=== PATIENT | male | born 1955 | race Caucasian/White ===

== ENCOUNTER 2020-04-29 06:28 | Day surgery (SDC) | payer BC, SELFPAY ==
[2020-04-22 20:03] VITALS: BMI 25.8
--- NOTE | 2020-04-28 08:57 | HO.ANESPROP2 ---
Documented by User: Ayala Abbott 04/28/20 11:50 HPI - Anesthesia Eval Consult details Narrative: 65yo M for Colonoscopy [facility] Past Medical History Medical History Ulcerative colitis Surgical History Surgical History History of colonoscopy Social History Social History Smoking Status: Never smoker Use of substances other than those prescribed or required for medical reasons: No Advance Directives: No Advance Directives Information Provided: No Advance Directives on File: No Meds Allergies Allergy/AdvReac Type Severity Reaction Status Date / Time aspirin Allergy Mild Rash Verified 04/22/20 20:01 Home Medications Medication Instructions Recorded Confirmed Last Taken Type No Known Home Meds 04/22/20 04/22/20 Unknown History Exam Exam Date and Time: April 28, 2020 0857 Height,Weight and Vital Signs: Height 5 ft 7 in Weight 74.843 kg Assessment and Plan Assessment Anesthesia Assessment: Chart Reviewed Documented by User: Adri Atkins 04/29/20 07:17 [facility] Past Medical History Medical History Ulcerative colitis Surgical History Surgical History History of colonoscopy Social History Social History Smoking Status: Never smoker Use of substances other than those prescribed or required for medical reasons: No Advance Directives: No Advance Directives Information Provided: No Advance Directives on File: No Meds Allergies Allergy/AdvReac Type Severity Reaction Status Date / Time aspirin Allergy Mild Rash Verified 04/22/20 20:01 Home Medications Medication Instructions Recorded Confirmed Last Taken Type No Known Home Meds 04/22/20 04/22/20 Unknown History Exam Airway Mallampati Class: II TM Dist: >3cm Neck ROM: Full
[2020-04-29 06:54] VITALS: BP 152/96; PULSE 86; RESP 16; TEMP 36.9; O2SAT 97
[2020-04-29] MEDS: Lactated Ringers 1,000 ML 100 ML IVCONT (06:58)
[2020-04-29 08:26] VITALS: BP 105/70; PULSE 73; RESP 12; TEMP 36.3; O2SAT 96
--- NOTE | 2020-04-29 08:27 | PM.OP ---
Brief Operative Note Date of Service: 04/29/20 Pre-op diagnosis: Ulcerative colitis Post-op diagnosis: other (Same, R/O dysplasia, diverticulosis) Procedure: Colonoscopy to cecum and TI with biopsies Surgeon: Dennis Blunt Anesthesia: MAC Estimated blood loss (mL): 5.0 Pathology: other (A. Ascending colon B. Transverse colon C. Descending colon D. Sigmoid colon E. rectum) Condition: stable Disposition: PACU
[2020-04-29 08:40] VITALS: BP 141/82; PULSE 66; RESP 16; TEMP 36.3; O2SAT 97
--- NOTE | 2020-04-29 08:41 | OP_ITS ---
SURGEON: Dennis Blunt MD INDICATIONS: The patient presents for evaluation of long-standing ulcerative colitis and colorectal cancer screening. PREOPERATIVE DIAGNOSIS: POSTOPERATIVE DIAGNOSIS: PROCEDURE PERFORMED: Colonoscopy to cecum and terminal ileum with multiple biopsies. Full consent has been obtained from him for this, including risks of bleeding and perforation. ESTIMATED BLOOD LOSS: COMPLICATIONS: ANESTHESIA: Monitored anesthesia care. ASSISTANTS: SPECIMENS: PREOPERATIVE DIAGNOSES: Colorectal cancer screening and ulcerative colitis. POSTOPERATIVE DIAGNOSES: Colorectal cancer screening and ulcerative colitis, diverticulosis, rule out dysplasia. DESCRIPTION OF PROCEDURE: The patient was placed in the left lateral decubitus position. The digital rectal exam revealed no abnormalities. There was no perianal disease. The Olympus video pediatric colonoscope was entered into the rectum and advanced easily to the cecum. Once in the cecum, I did identify normal-appearing cecal pouch with appendiceal orifice and a normal-appearing ileocecal valve. The terminal ileum was cannulated and appeared normal. The scope was withdrawn back in the colon. The entire cecum and ileocecal valve appeared normal. The scope was slowly withdrawn assessing all mucosal surfaces carefully. Preparation was excellent. The only area of some mild colitis was between 40 and 50 cm. I did not visualize any sign of polyps, other areas of colitis, nor angiodysplasia. There was a mild amount of sigmoid diverticulosis. Random biopsies were obtained in the ascending colon, transverse colon, descending colon, sigmoid colon, and rectum. In the rectum, the scope was retroflexed visualizing normal rectal mucosa and no pathology. The scope was straightened out and withdrawn from the patient. He tolerated procedure well and was returned to the recovery area in stable condition. IMPRESSION: 1. History of ulcerative colitis, rule out dysplasia. 2. Diverticulosis. PLAN: The results of the biopsy will be checked. Assuming there is no dysplasia, I would recommend a repeat colonoscopy in 5 years for further screening. He is currently doing well from a symptomatic standpoint on no particular medication for the ulcerative colitis and we will continue to observe this for the time being. He was advised to see me in 1 year for a followup visit. He was advised not to use any aspirin and NSAIDs for at least a week. This has been discussed with his . MD JERE Barkley/RAFAELA / [id number]
== END 2020-04-29 09:43 | disposition home or self-care (01) ==
PROVIDERS: PCP Internal Medicine; Visit Provider Internal Medicine
PROC: 0DJD8ZZ Inspection of Lower Intestinal Tract, Via Natural or Artificial Opening Endoscopic (ICD-10-PCS; CPT 45378; principal; 2020-04-29 07:30)
DX: Z12.11 Encounter for screening for malignant neoplasm of colon (principal); K52.9 Noninfective gastroenteritis and colitis, unspecified; K62.89 Other specified diseases of anus and rectum; K57.30 Diverticulosis of large intestine without perforation or abscess without bleeding; Z87.19 Personal history of other diseases of the digestive system; Z88.6 Allergy status to analgesic agent
CPT/HCPCS: 45380; 88305

== ENCOUNTER 2021-02-27 10:06 | Outpatient (REF) | payer BC, SELFPAY ==
[2021-02-27 10:10] LABS: MANUAL DIFF FLAG NO
[2021-02-27 10:53] LABS: Basophils Absolute Auto 0.1 X10*3/uL (0.0-0.2); Basophils Percent Auto 0.9 % (0-2); Eosinophils Absolute Auto 0.2 X10*3/uL (0.0-0.4); Eosinophils Percent Auto 3.3 % (0-4); Hemoglobin 14.6 g/dl (14.0-18.0); Imm Gran Abs Auto 0.02 X10*3/uL (0.00-0.03); Imm Gran Pct Auto 0.4 % (0.0-0.4); Lymphocytes Absolute Auto 1.8 X10*3/uL (1.2-4.9); Lymphocytes Percent Auto 33.8 % (20-40); Mean Corpuscular HGB Conc 32.4 g/dl (31.0-36.0); Mean Corpuscular Hemoglobin 29.7 pg (27.0-33.0); Mean Corpuscular Volume 91.6 fL (80.0-98.0); Mean Platelet Volume 12.6 fL (9.4-12.4); Monocytes Absolute Auto 0.5 X10*3/uL (0.1-1.2); Monocytes Percent Auto 9.4 % (2-11); Neutrophils Absolute Auto 2.9 x10*3/uL (2.0-8.3); Neutrophils Percent Auto 52.2 % (45-73); Platelet Count 138 X10*3/uL (160-400); Red Blood Count 4.91 X10*6/uL (4.60-5.80); Red Cell Distribution Width 11.9 % (11.0-16.0); White Blood Count 5.5 X10*3/uL (4.8-10.8)
[2021-02-27 11:04] LABS: Estimated Average Glucose 120 mg/dL; Hemoglobin A1c % 5.8 %
[2021-02-27 11:19] LABS: Alanine Aminotransferase 15 U/L (0-40); Alkaline Phosphatase 68 U/L (39-117); Anion Gap 11 (12-20); Aspartate Amino Transferase 18 U/L (5-37); Bilirubin Total 0.5 mg/dL (0.0-1.0); Blood Urea Nitrogen 14 mg/dL (9-16); Calcium 9.3 mg/dL (8.4-10.2); Carbon Dioxide 23 mmol/L (22-29); Chloride 111 mmol/L (96-108); Cholesterol 162 mg/dL; Estimated Glomerular Filt Rate > 60; Glucose Fasting 111 mg/dL (60-99); HDL Cholesterol 64 mg/dL; LDL Cholesterol Calculated 90 mg/dl; Potassium 4.4 mmol/L (3.3-5.1); Sodium 141 mmol/L (135-145); Total Protein 6.9 g/dL (6.5-8.0); Triglycerides 42 mg/dL
[2021-02-27 11:26] LABS: Creatinine Urine 177.73 mg/dL; Microalbum/Creatinine Ratio Ur 2.8 ug/mg cr
[2021-02-27 11:42] LABS: PSA,Total (Free>4and<10) 0.75 ng/mL (0.00-4.00)
== END 2021-02-27 10:07 | disposition home or self-care (01) ==
LOC: HO.LNP 10:06
PROVIDERS: Visit Provider Internal Medicine
DX: Z00.00 Encounter for general adult medical examination without abnormal findings (principal); Z12.5 Encounter for screening for malignant neoplasm of prostate; R73.03 Prediabetes; I10 Essential (primary) hypertension
CPT/HCPCS: 80053; 80061; 82043; 83036; 84153; 85025

== ENCOUNTER 2021-03-02 15:48 | Outpatient (REF) | payer BC, SELFPAY ==
[2021-03-02 15:52] LABS: MANUAL DIFF FLAG NO
[2021-03-02 15:54] LABS: Basophils Absolute Auto 0.1 X10*3/uL (0.0-0.2); Basophils Percent Auto 0.9 % (0-2); Eosinophils Absolute Auto 0.3 X10*3/uL (0.0-0.4); Eosinophils Percent Auto 3.6 % (0-4); Hematocrit 45.9 % (42.0-52.0); Hemoglobin 15.1 g/dl (14.0-18.0); Imm Gran Abs Auto 0.03 X10*3/uL (0.00-0.03); Imm Gran Pct Auto 0.4 % (0.0-0.4); Lymphocytes Absolute Auto 2.7 X10*3/uL (1.2-4.9); Lymphocytes Percent Auto 36.7 % (20-40); Mean Corpuscular HGB Conc 32.9 g/dl (31.0-36.0); Mean Corpuscular Hemoglobin 29.7 pg (27.0-33.0); Mean Corpuscular Volume 90.2 fL (80.0-98.0); Mean Platelet Volume 12.3 fL (9.4-12.4); Monocytes Absolute Auto 0.9 X10*3/uL (0.1-1.2); Neutrophils Absolute Auto 3.5 x10*3/uL (2.0-8.3); Neutrophils Percent Auto 46.4 % (45-73); Platelet Count 167 X10*3/uL (160-400); Red Blood Count 5.09 X10*6/uL (4.60-5.80); Red Cell Distribution Width 11.9 % (11.0-16.0); White Blood Count 7.5 X10*3/uL (4.8-10.8)
== END 2021-03-02 15:49 | disposition home or self-care (01) ==
LOC: HO.LNP 15:48
PROVIDERS: Visit Provider Internal Medicine
DX: D69.6 Thrombocytopenia, unspecified (principal)
CPT/HCPCS: 85025

== ENCOUNTER 2022-03-30 10:28 | Outpatient (REF) | payer BC, SELFPAY ==
[2022-03-30 10:31] LABS: MANUAL DIFF FLAG NO
[2022-03-30 10:48] LABS: Appearance Urine Clear; Basophils Absolute Auto 0.1 X10*3/uL (0.0-0.2); Basophils Percent Auto 0.9 % (0-2); Color Urine Yellow; Eosinophils Absolute Auto 0.2 X10*3/uL (0.0-0.4); Eosinophils Percent Auto 4.3 % (0-4); Glucose Urine UA Negative (Negative); Hematocrit 46.1 % (42.0-52.0); Hemoglobin 15.3 g/dl (14.0-18.0); Imm Gran Abs Auto 0.03 X10*3/uL (0.00-0.03); Imm Gran Pct Auto 0.6 % (0.0-0.4); Leukocyte Esterase Urine Negative (Negative); Lymphocytes Absolute Auto 1.7 X10*3/uL (1.2-4.9); Lymphocytes Percent Auto 32.3 % (20-40); Mean Corpuscular HGB Conc 33.2 g/dl (31.0-36.0); Mean Corpuscular Hemoglobin 30.2 pg (27.0-33.0); Mean Corpuscular Volume 91.1 fL (80.0-98.0); Mean Platelet Volume 11.5 fL (9.4-12.4); Monocytes Absolute Auto 0.6 X10*3/uL (0.1-1.2); Monocytes Percent Auto 10.7 % (2-11); Neutrophils Absolute Auto 2.7 x10*3/uL (2.0-8.3); Neutrophils Percent Auto 51.2 % (45-73); Nitrite Urine Negative (Negative); Platelet Count 229 X10*3/uL (160-400); Red Blood Count 5.06 X10*6/uL (4.60-5.80); Red Cell Distribution Width 12.1 % (11.0-16.0); Urine Blood Negative (Negative); Urine Ketones Negative (Negative); Urine Protein Negative (Neg-Trace); White Blood Count 5.3 X10*3/uL (4.8-10.8)
[2022-03-30 10:53] LABS: Bacteria Urine None Seen (None Seen); Hyaline Casts Urine 0-2 /LPF (0-2); RBC Urine 0-2 /HPF (0-2); Squamous Epithelial Cell Urine 0-2 /HPF (0-2); WBC Urine 0-5 /HPF (0-5)
[2022-03-30 11:12] LABS: Estimated Average Glucose 117 mg/dL; Hemoglobin A1C 150.5242 umol/L; Hemoglobin A1c % 5.7 %
[2022-03-30 11:30] LABS: Microalbumin Urine < 5.0 mg/L
[2022-03-30 11:49] LABS: Alanine Aminotransferase 14 U/L (0-40); Alkaline Phosphatase 85 U/L (39-117); Anion Gap 13 (12-20); Aspartate Amino Transferase 18 U/L (5-37); Bilirubin Total 0.7 mg/dL (0.0-1.0); Blood Urea Nitrogen 16 mg/dL (9-16); Calcium 9.5 mg/dL (8.4-10.2); Carbon Dioxide 26 mmol/L (22-29); Chloride 108 mmol/L (96-108); Cholesterol 173 mg/dL; Estimated Glomerular Filt Rate > 60; Glucose Fasting 106 mg/dL (60-99); HDL Cholesterol 69 mg/dL; LDL Cholesterol Calculated 95 mg/dl; Potassium 4.6 mmol/L (3.3-5.1); Sodium 142 mmol/L (135-145); Total Protein 6.9 g/dL (6.5-8.0); Triglycerides 45 mg/dL
[2022-03-30 12:06] LABS: PSA,Total (Free>4and<10) 0.74 ng/mL (0.00-4.00)
== END 2022-03-30 10:29 | disposition home or self-care (01) ==
LOC: HO.LNP 10:28
PROVIDERS: PCP Internal Medicine; Visit Provider Internal Medicine
DX: Z12.5 Encounter for screening for malignant neoplasm of prostate (principal); I10 Essential (primary) hypertension; R73.03 Prediabetes; D69.6 Thrombocytopenia, unspecified
CPT/HCPCS: 80053; 80061; 81001; 82043; 83036; 84153; 85025

== ENCOUNTER 2023-03-29 10:54 | Outpatient (REF) | payer BC, SELFPAY ==
[2023-03-29 10:57] LABS: MANUAL DIFF FLAG NO
[2023-03-29 11:04] LABS: Basophils Absolute Auto 0.1 X10*3/uL (0.0-0.2); Basophils Percent Auto 0.9 % (0-2); Eosinophils Absolute Auto 0.3 X10*3/uL (0.0-0.4); Eosinophils Percent Auto 4.1 % (0-4); Hematocrit 47.9 % (42.0-52.0); Hemoglobin 15.8 g/dl (14.0-18.0); Imm Gran Abs Auto 0.04 X10*3/uL (0.00-0.03); Imm Gran Pct Auto 0.6 % (0.0-0.4); Lymphocytes Absolute Auto 1.8 X10*3/uL (1.2-4.9); Lymphocytes Percent Auto 26.4 % (20-40); Mean Corpuscular Hemoglobin 30.1 pg (27.0-33.0); Mean Corpuscular Volume 91.2 fL (80.0-98.0); Mean Platelet Volume 11.8 fL (9.4-12.4); Monocytes Absolute Auto 0.7 X10*3/uL (0.1-1.2); Neutrophils Absolute Auto 3.8 x10*3/uL (2.0-8.3); Platelet Count 218 X10*3/uL (160-400); Red Blood Count 5.25 X10*6/uL (4.60-5.80); Red Cell Distribution Width 11.9 % (11.0-16.0); White Blood Count 6.6 X10*3/uL (4.8-10.8)
[2023-03-29 11:05] LABS: Appearance Urine Clear; Color Urine Yellow; Glucose Urine UA Negative (Negative); Leukocyte Esterase Urine Negative (Negative); Nitrite Urine Negative (Negative); Urine Blood Negative (Negative); Urine Ketones Negative (Negative); Urine Protein Negative (Neg-Trace)
[2023-03-29 11:07] LABS: Bacteria Urine None Seen (None Seen); Hyaline Casts Urine 0-2 /LPF (0-2); RBC Urine 0-2 /HPF (0-2); Squamous Epithelial Cell Urine 0-2 /HPF (0-2); WBC Urine 0-5 /HPF (0-5)
[2023-03-29 11:12] LABS: Alanine Aminotransferase 17 U/L (0-40); Albumin Level 4.3 g/dL (3.5-5.0); Alkaline Phosphatase 77 U/L (39-117); Anion Gap 11 (12-20); Aspartate Amino Transferase 21 U/L (5-37); Bilirubin Total 0.6 mg/dL (0.0-1.0); Blood Urea Nitrogen 16 mg/dL (9-16); Calcium 9.5 mg/dL (8.4-10.2); Carbon Dioxide 26 mmol/L (22-29); Chloride 108 mmol/L (96-108); Cholesterol 184 mg/dL (<200); Estimated Glomerular Filt Rate > 60; Glucose Random 108 mg/dL (60-115); HDL Cholesterol 72 mg/dL (>40); LDL Cholesterol Calculated 103 mg/dL (<100); Potassium 4.3 mmol/L (3.3-5.1); Sodium 141 mmol/L (135-145); Total Protein 7.7 g/dL (6.5-8.0); Triglycerides 45 mg/dL (<150)
== END 2023-03-29 10:55 | disposition home or self-care (01) ==
LOC: HO.LNP 10:54
PROVIDERS: Visit Provider Internal Medicine
DX: Z00.00 Encounter for general adult medical examination without abnormal findings (principal); Z12.5 Encounter for screening for malignant neoplasm of prostate; I10 Essential (primary) hypertension; D69.6 Thrombocytopenia, unspecified
CPT/HCPCS: 80053; 80061; 81001; 84153; 85025

== ENCOUNTER 2024-05-15 11:21 | Outpatient (REF) | payer BC, SELFPAY ==
[2024-05-15 11:23] LABS: MANUAL DIFF FLAG NO
[2024-05-15 11:44] LABS: Basophils Absolute Auto 0.1 X10*3/uL (0.0-0.2); Basophils Percent Auto 1.3 % (0-2); Eosinophils Absolute Auto 0.5 X10*3/uL (0.0-0.4); Eosinophils Percent Auto 9.3 % (0-4); Hematocrit 46.2 % (42.0-52.0); Hemoglobin 15.1 g/dl (14.0-18.0); Imm Gran Abs Auto 0.03 X10*3/uL (0.00-0.03); Imm Gran Pct Auto 0.6 % (0.0-0.4); Lymphocytes Absolute Auto 1.6 X10*3/uL (1.2-4.9); Lymphocytes Percent Auto 29.4 % (20-40); Mean Corpuscular HGB Conc 32.7 g/dl (31.0-36.0); Mean Corpuscular Hemoglobin 29.6 pg (27.0-33.0); Mean Corpuscular Volume 90.6 fL (80.0-98.0); Monocytes Absolute Auto 0.7 X10*3/uL (0.1-1.2); Monocytes Percent Auto 12.8 % (2-11); Neutrophils Absolute Auto 2.5 x10*3/uL (2.0-8.3); Neutrophils Percent Auto 46.6 % (45-73); Red Cell Distribution Width 12.3 % (11.0-16.0); White Blood Count 5.4 X10*3/uL (4.8-10.8)
[2024-05-15 11:55] LABS: Estimated Average Glucose 126 mg/dL; Hemoglobin A1C 164.6537 umol/L; Total Hemoglobin (HGBA1C) 3938.8838 umol/L
[2024-05-15 12:02] LABS: Cholesterol 173 mg/dL (<200); HDL Cholesterol 72 mg/dL (>40); LDL Cholesterol Calculated 90 mg/dL (<100); Triglycerides 55 mg/dL (<150)
[2024-05-15 12:14] LABS: Appearance Urine Clear; Color Urine Yellow; Glucose Urine UA Negative (Negative); Leukocyte Esterase Urine Negative (Negative); Nitrite Urine Negative (Negative); PH 6.5 (5.0-9.0); Specific Gravity - Urine 1.015 (1.005-1.025); Urine Blood Negative (Negative); Urine Ketones Negative (Negative); Urine Protein Negative (Neg-Trace)
[2024-05-15 12:18] LABS: Bacteria Urine None Seen (None Seen); Hyaline Casts Urine 0-2 /LPF (0-2); RBC Urine 0-2 /HPF (0-2); Squamous Epithelial Cell Urine 0-2 /HPF (0-2); WBC Urine 0-5 /HPF (0-5)
[2024-05-15 12:19] LABS: PSA,Total (Free>4and<10) 0.74 ng/mL (0.00-4.00)
[2024-05-15 12:22] LABS: Mean Platelet Volume 11.9 fL (9.4-12.4); Platelet Count 114 X10*3/uL (160-400)
[2024-05-15 12:37] LABS: Creatinine Urine 104.85 mg/dL; Microalbumin Urine < 5.0 mg/L
--- OUTSIDE RECORDS SUMMARY | 2024-05-15 13:30 | XMS_ITS ---
Author Organization Geoffrey Murillo MD Address [address] [place], [place] [id number] Care Team Providers Care Gymnastics Instructor Name Role Phone Geoffrey Murillo Primary Care Provider Results Component Value Reference Range Notes Complete Blood Count Auto Di ff Reviewed date:03/29/2023 04:43:33 PM Interpretation: Performing Lab:[facility], [address] [place] [phone] Notes/Report: White Blood Count 6.6 4.8-10.8 X10*3/uL Red Blood Count 5.25 4.60-5.80 X10*6/uL Hemoglobin 15.8 14.0-18.0 g/dl Hematocrit 47.9 42.0-52.0 % Mean Corpuscular Volume 91.2 80.0-98.0 fL Mean Corpuscular Hemoglobin 30.1 27.0-33.0 pg Mean Corpuscular HGB Conc 33.0 31.0-36.0 g/dl Red Cell Distribution Width 11.9 11.0-16.0 % Platelet Count 218 160-400 X10*3/uL Mean Platelet Volume 11.8 9.4-12.4 fL Neutrophils Percent Auto 58.0 45-73 % Imm Gran Pct Auto 0.6 0.0-0.4 % Lymphocytes Percent Auto 26.4 20-40 % Monocytes Percent Auto 10.0 2-11 % Eosinophils Percent Auto 4.1 0-4 % Basophils Percent Auto 0.9 0-2 % NRBC Pct Auto 0.0 0.0-0.2 /100WBC Neutrophils Absolute Auto 3.8 2.0-8.3 x10*3/u L Imm Gran Abs Auto 0.04 0.00-0.03 X10*3/uL Lymphocytes Absolute Auto 1.8 1.2-4.9 X10*3/u L Monocytes Absolute Auto 0.7 0.1-1.2 X10*3/uL Eosinophils Absolute Auto 0.3 0.0-0.4 X10*3/u L Basophils Absolute Auto 0.1 0.0-0.2 X10*3/uL NRBC Abs Auto 0.000 0.0-0.012 X10*3/uL Lipid Panel Reviewed date:03/29/2023 12:51:53 PM Interpretation: Performing Lab:[address] [phone] Notes/Report: Triglycerides 45 <150 mg/dL Desirable Triglyceride: less than 150 mg/dL Borderline High Triglyceride 150-199 mg/dL High Triglyceride: 200-499 mg/dL Very High Triglyceride: greater than or equal to 5OO mg/dL Cholesterol 184 <200 mg/dL Desirable Cholesterol: less than 200 mg/dL Borderline High Cholesterol: 200-239 mg/dL High Cholesterol: greater than 239 mg/dL LDL Cholesterol Calculated 103 <100 mg/dL Desirable LDL: less than 100 mg/dL Near Optimal/Above Optimal LDL: 110-129 mg/dL Borderline High LDL: 130-159 mg/dL High LDL: 160-189 mg/dL Very High LDL: greater than or equal to 190 mg/dL HDL Cholesterol 72 >40 mg/dL Desirable HDL: greater than 40 mg/dL Note: This HDL assay may give artificially low results in patients with liver disease. PSA,Total (Free>4and<10) Reviewed date:03/29/2023 12:45:55 PM Interpretation: Performing Lab:[facility], [address] [place] [phone] Notes/Report: PSA,Total (Free>4and<10) 0.70 0.00-4.00 ng/mL A Free PSA was not performed: The percentage of Free PSA can be used to enhance the differentiation of prostate cancer from benign prostatic disease in subjects whose PSA levels are between 4.0 and 10.0 ng/mL. For subjects whose PSA levels are below 4.0 or above 10.0 ng/mL, the risk of prostate cancer is determined on the basis of the PSA alone. Therefore the % Free PSA is recommended only for those subjects whose PSA levels are between 4.0 and 10.0 ng/mL. PSA methodology: Logan Alinity i Chemiluminescent Microparticle Immunoassay (CMIA) UA ClnCatch+Micro w/rflx Cul t Reviewed date:03/29/2023 12:53:48 PM Interpretation: Performing Lab:[facility], [address] [place] [phone] Notes/Report: Urine, Clean Catch Color Urine Yellow Appearance Urine Clear PH 6.0 5.0-9.0 Glucose Urine UA Negative Negative mg/dL Urine Blood Negative Negative Specific [place] - Urine 1.010 1.005-1.025 Urine Protein Negative Neg-Trace mg/dL Urine Ketones Negative Negative mg/dL Nitrite Urine Negative Negative Leukocyte Esterase Urine Negative Negative RBC Urine 0-2 0-2 /HPF WBC Urine 0-5 0-5 /HPF Squamous Epithelial Cell Urine 0-2 0-2 /HPF Bacteria Urine None Seen None Seen Hyaline Casts Urine 0-2 0-2 /LPF REASON FOR VISIT yearly labs Encounters Encounter Location Date Provider Diagnosis Geoffrey Murillo MD [address] [place] [address] [place] [phone] 03/29/2023 Geoffrey Murillo Blood tests for rout ine general physical examination Z00.00 ; Labile hypertension I10 and Thrombocytopenia D69.6 Assessments Encounter Date Diagnosis (ICD Code) Assessment Notes Treatment Notes Treatment Clinical Notes Section Notes 03/29/2023 Blood tests for routine general physical examination (ICD-10 - Z00.00) 03/29/2023 Labile hypertension (ICD-10 - I10) 03/29/2023 Thrombocytopenia (ICD-10 - D69.6) Plan Of Treatment Next Appt Details Provider Name:Geoffrey drummond, 05/22/2024 02:30:00 PM, [address] [facility], [address], [place], [place], [phone], Progress Notes * Gilbert SHAW WDOB: 7 (69 yo M)Acc No.[id number]:03/29/2023 Progress Note Patient:Gilbert DO Provider:?Geoffrey Murillo MD :1955???Age:68 Y???Sex:Male Stanford e:03/29/2023 [facility] Subjective: * Chief Complaints: * ???1. Yearly labs. * Medical History:? Objective: * Vitals:? Assessment: * Assessment: 1.?Blood tests for routine g eneral physical examination - Z00.00 (Primary)???2.?Labile hypertension - I10???3.?Thrombocytopenia - D69.6??? Plan: * Treatment: 2.?Labile hypertension?LAB: [facility] [place]. Panel Fast (Order Cancelled) ?LAB: Complete Blood Count Auto Diff (Collection Date & Time - 03/29/2023) ?LAB: Lipid Panel (Collection Date & Time - 03/29/2023) ?LAB: PSA,Total (Free>4and<10) (Collection Date & Time - 03/29/2023) ?LAB: UA ClnCatch+Micro w/rflx Cult (Collection Date & Time - 03/29/2023) 3.?Thrombocytopenia?LAB: [facility] [place]. Panel Fast (Order Cancelled) ?LAB: Complete Blood Count Auto Diff (Collection Date & Time - 03/29/2023) ?LAB: Lipid Panel (Collection Date & Time - 03/29/2023) ?LAB: PSA,Total (Free>4and<10) (Collection Date & Time - 03/29/2023) ?LAB: UA ClnCatch+Micro w/rflx Cult (Collection Date & Time - 03/29/2023) * Procedure Codes:?67428 VENIP UNCT, ROUTINE* * * The named appointment provid er may or may not be the originator of this progress note, and it is not deemed complete until electronically signed by the appointment provider. Sign off status: Pending * Provider:?Geoffrey Murillo MD Date:?0 03/29/2023 Generated for Naseem jalloh/Nestor/Wyatt on:?05/15/2024 01:30 PM EST
--- OUTSIDE RECORDS SUMMARY | 2024-05-15 13:30 | XMS_ITS | Patient Health Record ---
Author Organization [facility] Address [address] [place] [phone] Care Team Providers Care Brood Hatchery Manager Name Role Phone Chidi SANFORD, Geoffrey Primary Care Provider Dennis Brito [phone] ALLERGIES Allergen (clinical drug ingredient) Drug/Non Drug Allergy documented on EMR Reaction Allergy Type Onset Date Status aspirin Aspirin in high doses Drug Allergy Act gloria REASON FOR REFERRAL No Information IMMUNIZATIONS Vaccine Route Administration Date Status Comme nts Influenza Unknown 12/17/2019 Administered SOCIAL HISTORY Sex Assigned At : Social History Observation Description Sex Assigned At Unknown PROBLEMS Problem Type ICD Code Onset Dates Problem Status W/U Status Risk SNOMED Code Notes Problem Encounter for screening for malignant neoplasm of colon (Z12.11) Active confirmed Screening for malignant neoplasm of colon (969709959) Problem Ulcerative colitis (K51.90) Active confirmed Ulcerative colitis (95956183) PLAN OF TREATMENT Pending Test Test Name Order Date Pathology 04/29/2020 Future Test Test Name Order Date COLONOSCOPY 11/18/2014 COLONOSCOPY 04/05/2020 Insurance Providers Payer Name Payer Address Payer Phone Subscriber Number Group Number Insured Name Patient Relationship to Insured Coverage Start Date Coverage End Date [facility] [address] [place], [place] [id number] KAL MEYER Self - patient is the insured MEDICAL (GENERAL) HISTORY Medical History History ICD Code Ulcerative colitis, dignosed in 1987--- his most recent colonoscopy was in 02/2015 which showed some mild active colitis from 40 cm into the distal transverse colon, but normal-appearing proximal and distal colon; there was also an inflammatory polyp at 50 cm--biopsies were all negative for any dysplasia nor any adenomas--he has been off of his sulfasalazine since at least 2013 Denies [place],DM,CVA,Lung disease,renal dise ase Surgical History Surgery Date(Month/Year)
--- OUTSIDE RECORDS SUMMARY | 2024-05-15 13:30 | XMS_ITS ---
Author Organization Geoffrey Murillo MD Address [address] [place], [place] [phone] Care Team Providers Care Music Publicist Name Role Phone Geoffrey Murillo Primary Care Provider Results Component Value Reference Range Notes Complete Blood Count Auto Di ff (Not yet reviewed by provider) Interpretation: Performing Lab:[facility], [address] [place] [phone] Notes/Report: White Blood Count 5.4 4.8-10.8 X10*3/uL Red Blood Count 5.10 4.60-5.80 X10*6/uL Hemoglobin 15.1 14.0-18.0 g/dl Hematocrit 46.2 42.0-52.0 % Mean Corpuscular Volume 90.6 80.0-98.0 fL Mean Corpuscular Hemoglobin 29.6 27.0-33.0 pg Mean Corpuscular HGB Conc 32.7 31.0-36.0 g/dl Red Cell Distribution Width 12.3 11.0-16.0 % Platelet Count 114 160-400 X10*3/uL Mean Platelet Volume 11.9 9.4-12.4 fL Neutrophils Percent Auto 46.6 45-73 % Imm Gran Pct Auto 0.6 0.0-0.4 % Lymphocytes Percent Auto 29.4 20-40 % Monocytes Percent Auto 12.8 2-11 % Eosinophils Percent Auto 9.3 0-4 % Basophils Percent Auto 1.3 0-2 % NRBC Pct Auto 0.0 0.0-0.2 /100WBC Neutrophils Absolute Auto 2.5 2.0-8.3 x10*3/u L Imm Gran Abs Auto 0.03 0.00-0.03 X10*3/uL Lymphocytes Absolute Auto 1.6 1.2-4.9 X10*3/u L Monocytes Absolute Auto 0.7 0.1-1.2 X10*3/uL Eosinophils Absolute Auto 0.5 0.0-0.4 X10*3/u L Basophils Absolute Auto 0.1 0.0-0.2 X10*3/uL NRBC Abs Auto 0.000 0.0-0.012 X10*3/uL UA ClnCatch+Micro w/rflx Cul t (Not yet reviewed by provider) Interpretation: Performing Lab:[facility], [address] [place] [phone] Notes/Report: Urine, Clean Catch Color Urine Yellow Appearance Urine Clear PH 6.5 5.0-9.0 Glucose Urine UA Negative Negative mg/dL Urine Blood Negative Negative Specific [place] - Urine 1.015 1.005-1.025 Urine Protein Negative Neg-Trace mg/dL Urine Ketones Negative Negative mg/dL Nitrite Urine Negative Negative Leukocyte Esterase Urine Negative Negative RBC Urine 0-2 0-2 /HPF WBC Urine 0-5 0-5 /HPF Squamous Epithelial Cell Urine 0-2 0-2 /HPF Bacteria Urine None Seen None Seen Hyaline Casts Urine 0-2 0-2 /LPF Lipid Panel Reviewed date:05/15/2024 12:42:12 PM Interpretation: Performing Lab:[facility], [address] [place] [phone] Notes/Report: Triglycerides 55 <150 mg/dL Desirable Triglyceride: less than 150 mg/dL Borderline High Triglyceride 150-199 mg/dL High Triglyceride: 200-499 mg/dL Very High Triglyceride: greater than or equal to 5OO mg/dL Cholesterol 173 <200 mg/dL Desirable Cholesterol: less than 200 mg/dL Borderline High Cholesterol: 200-239 mg/dL High Cholesterol: greater than 239 mg/dL LDL Cholesterol Calculated 90 <100 mg/dL Desirable LDL: less than 100 mg/dL Near Optimal/Above Optimal LDL: 110-129 mg/dL Borderline High LDL: 130-159 mg/dL High LDL: 160-189 mg/dL Very High LDL: greater than or equal to 190 mg/dL HDL Cholesterol 72 >40 mg/dL Desirable HDL: greater than 40 mg/dL Note: This HDL assay may give artificially low results in patients with liver disease. PSA,Total (Free>4and<10) Reviewed date:05/15/2024 12:43:54 PM Interpretation: Performing Lab:[address] [phone] Notes/Report: PSA,Total (Free>4and<10) 0.74 0.00-4.00 ng/mL A Free PSA was not [...] Logan Alinity i Chemiluminescent Microparticle Immunoassay (CMIA) Microalbumin, Random Reviewed date:05/15/2024 12:43:47 PM Interpretation: Performing Lab:[address] [phone] Notes/Report: Creatinine Urine 104.85 Microalbumin Urine < 5.0 Microalbum/Creatinine Ratio Ur TNP <30 ug/mg cr Unable to calculate albumin/creatinine ratio due to low microalbumin or creatinine result. Hemoglobin A1c Reviewed date:05/15/2024 12:42:47 PM Interpretation: Performing Lab:[address] [phone] Notes/Report: Hemoglobin A1c % 6.0 <6.0 % Hemoglobin A1C Reference Range Adults: 4.8 - 6.0 % Non diabetic: < 6.0 % Goal: < 7.0 % Additional Action Suggested: > 8.0 % Note: Hemoglobin A1c results are invalid for patients with abnormal amounts of HbF. Blood transfusions may impact the HbA1c concentration in the patient sample. Estimated Average Glucose 126 eAG = Estimated average glucose which is %A1C expressed as average glucose, using the formula of the Y0Q-Vekpwki Average Glucose study (ADAG), Diabetes Care, Vol.31,#8, Oct. 2007 REASON FOR VISIT fasting yearly labs Encounters Encounter Location Date Provider Diagnosis Geoffrey Murillo MD [address] [place], [place] [phone] 05/15/2024 Geoffrey Murillo Blood tests for rout ine general physical examination Z00.00 ; Labile hypertension I10 ; Thrombocytopenia D69.6 and Prediabetes R73.03 Assessments Encounter Date Diagnosis (ICD Code) Assessment Notes Treatment Notes Treatment Clinical Notes Section Notes 05/15/2024 Blood tests for routine general physical examination (ICD-10 - Z00.00) 05/15/2024 Labile hypertension (ICD-10 - I10) 05/15/2024 Thrombocytopenia (ICD-10 - D69.6) 05/15/2024 Prediabetes (ICD-10 - R73.03) Plan Of Treatment Pending Test Test Name Order Date Complete Blood Count Auto Diff UA ClnCatch+Micro w/rflx Cult 05/15/2024 Next Appt Details Provider Name:Geoffrey Mcginnis ier, 05/22/2024 02:30:00 PM, [address] [place] [address], [address], [place], [place], [phone], Progress Notes * COLINGilbert WDOB: (69 yo M)Acc No.[id number]:05/15/2024 Progress Note Patient:?Gilbert SHAW Provider:?Geoffrey Murillo MD :1955???Age:69 Y???Sex:Male Stanford e:05/15/2024 Address: [address] [id number] Subjective: * Chief Complaints: * ???1. Fasting yearly labs. * Medical History:? Objective: * Vitals:? Assessment: * Assessment: 1.?Blood tests for routine g eneral physical examination - Z00.00 (Primary)???2.?Labile hypertension - I10???3.?Thrombocytopenia - D69.6???4.?Prediabetes - R73.03??? Plan: * Treatment: 2.?Labile hypertension?LAB: Complete Blood Count Auto Diff (Collection Date & Time - 05/15/2024 08:00 AM) ?LAB: UA ClnCatch+Micro w/rflx Cult (Collection Date & Time - 05/15/2024 08:00 AM) ?LAB: Lipid Panel (Collection Date & Time - 05/15/2024 08:00 AM) ?LAB: PSA,Total (Free>4and<10) (Collection Date & Time - 05/15/2024 08:00 AM) ?LAB: Microalbumin, Random (Collection Date & Time 05/15/2024 08:00 AM) ?LAB: Hemoglobin A1c (Collection Date & Time 05/15/2024 08:00 AM) 3.?Thrombocytopenia?LAB: Complete Blood Count Auto Diff (Collection Date & Time - 05/15/2024 08:00 AM) ?LAB: UA ClnCatch+Micro w/rflx Cult (Collection Date & Time 05/15/2024 08:00 AM) ?LAB: Lipid Panel (Collection Date & Time 05/15/2024 08:00 AM) ?LAB: PSA,Total (Free>4and<10) (Collection Date & Time - 05/15/2024 08:00 AM) ?LAB: Microalbumin, Random (Collection Date & Time - 05/15/2024 08:00 AM) ?LAB: Hemoglobin A1c (Collection Date & Time 05/15/2024 08:00 AM) 4.?Prediabetes?LAB: Complete Blood Count Auto Diff (Collection Date & Time 05/15/2024 08:00 AM) ?LAB: UA ClnCatch+Micro w/rflx Cult (Collection Date & Time - 05/15/2024 08:00 AM) ?LAB: Lipid Panel (Collection Date & Time - 05/15/2024 08:00 AM) ?LAB: PSA,Total (Free>4and<10) (Collection Date & Time - 05/15/2024 08:00 AM) ?LAB: Microalbumin, Random (Collection Date & Time - 05/15/2024 08:00 AM) ?LAB: Hemoglobin A1c (Collection Date & Time - 05/15/2024 08:00 AM) * * The named appointment provid er may or may not be the originator of this progress note, and it is not deemed complete until electronically signed by the appointment provider. Sign off status: Pending * Provider:?Geoffrey Murillo MD Date:?0 05/15/2024 Generated for Naseem jalloh/Nestor/Wyatt on:?05/15/2024 01:30 PM EST
--- OUTSIDE RECORDS SUMMARY | 2024-05-15 13:31 | XMS_ITS | Patient Health Record ---
Author Organization Geoffrey Murillo MD Address [address] [place], [place] [id number] Care Team Providers Care Mobile Equipment Mechanic Name Role Phone Geoffrey Murillo Primary Care Provider [phone] Allergies No Known Allergies Results Component Value Reference Range Notes Complete Blood Count Auto Di ff (Not yet reviewed by provider) Interpretation: Performing Lab:[facility], [address] [place] [id number] Notes/Report: White Blood Count 5.4 4.8-10.8 X10*3/uL [...] (Not yet reviewed by provider) Interpretation: Performing Lab:[facility], [address] [place] [phone] Notes/Report: Urine, Clean Catch Color Urine Yellow Appearance Urine Clear PH 6.5 5.0-9.0 Glucose Urine UA Negative Negative mg/dL Urine Blood Negative Negative Specific [place] - Urine 1.015 1.005-1.025 Urine Protein Negative Neg-Trace mg/dL Urine Ketones Negative Negative mg/dL Nitrite Urine Negative Negative Leukocyte Esterase Urine Negative Negative RBC Urine 0-2 0-2 /HPF WBC Urine 0-5 0-5 /HPF Squamous Epithelial Cell Urine 0-2 0-2 /HPF Bacteria Urine None Seen None Seen Hyaline Casts Urine 0-2 0-2 /LPF Lipid Panel Reviewed date:05/15/2024 12:42:12 PM Interpretation: Performing Lab:[facility], [address] [place] [phone] Notes/Report: Triglycerides 55 <150 mg/dL Desirable Triglyceride: [...] (Free>4and<10) Reviewed date:05/15/2024 12:43:54 PM Interpretation: Performing Lab:[address] [phone] Notes/Report: PSA,Total (Free>4and<10) 0.74 0.00-4.00 ng/mL A [...] Random Reviewed date:05/15/2024 12:43:47 PM Interpretation: Performing Lab:[address] [phone] Notes/Report: Creatinine Urine 104.85 Microalbumin Urine < 5.0 Microalbum/Creatinine Ratio Ur TNP <30 ug/mg cr Unable to calculate albumin/creatinine ratio due to low microalbumin or creatinine result. Hemoglobin A1c Reviewed date:05/15/2024 12:42:47 PM Interpretation: Performing Lab:[address] [phone] Notes/Report: Hemoglobin A1c % 6.0 <6.0 % [...] average glucose, using the formula of the U5M-Zinloqz Average Glucose study (ADAG), Diabetes Care, Vol.31,#8, Oct. 2007 Reason For Referral No Information Immunizations Vaccine Route Administration Date Status Comme nts Fluarix Quadrivalent IM Intramuscular 01/02/2016 Administe red Flu Vaccine Unknown 01/16/2017 Administered at work Fluarix Quadrivalent IM Intramuscular 02/03/2018 Administe red Fluarix Quadrivalent Unknown 02/09/2019 Administered at work Fluarix Quadrivalent Unknown 01/06/2020 Administered [place] SARS-COV-2 Pfizer Unknown 06/11/2020 Administered SARS-COV-2 Pfizer Unknown 07/02/2020 Administered SARS-COV-2 Pfizer Unknown 02/16/2021 Administered Fluarix Quadrivalent Unknown 01/04/2021 Administered At work Fluarix Quadrivalent Unknown 02/06/2022 Administered PPSV23 (Pnemovax) Unknown 02/15/2020 Refused TDaP Unknown 02/25/2020 Refused PPSV23 (Pnemovax) Unknown 02/25/2020 Refused Social History Tobacco Use: Social History Observation Description Date Details (start date - stop date) Never Smoker NA - NA Tobacco Use/Smoking Question Answer Notes Patient is a nonsmoker Additional Findings: Tobacco Non-User Cu rrent non-smoker, currently using no form of tobacco Alcohol Screen Question Answer Notes Did you have a drink contain ing alcohol in the past year? Yes How often did you have a dri nk containing alcohol in the past year? Monthly or less (1 point) How many drinks did you have on a typical day when you were drinking in the past year? 1 or 2 drinks (0 point) How often did you have 6 or more drinks on one occasion in the past year? Never (0 point) Points 1 Interpretation Negative Problems Problem Type SNOMED Code ICD Code Onset Dates Problem Status W/U Status Risk Notes Problem Thrombocytopenia (893123049) Thrombocytopenia (D69.6) Active confirmed Problem 933650774 Labile hypertension (I10) Active confirmed Problem 82778621 Ulcerative colit is without complications, unspecified ulcerative colitis (K51.90) Active confirmed Problem 926654996 Prediabetes (R73.03) Active confirmed Encounters Encounter Location Date Provider Diagnosis Geoffrey Murillo MD [address] [place] [address] [address] [place], [place] [id number] 05/15/2024 Geoffrey Murillo Blood tests for rout [...] Treatment Pending Test Test Name Order Date MRA BRAIN NO CONTRAST 01/29/2017 Complete Blood Count Auto Diff 5 UA ClnCatch+Micro w/rflx Cult 05/15/2024 Next Appt Details Provider Name:Geoffrey aburtor, 05/22/2024 02:30:00 PM, [address] [place] [address], [address], [place], [place], [id number], Insurance Providers Payer Name Payer Address Payer Phone Subscriber Number Group Number Insured Name Patient Relationship to Insured Coverage Start Date Coverage End Date [employer] [address] [place], [place] [id number] Gilbert Shaw Self - patient is the insured Medical (General) History Medical History History ICD Code COLONOSCOPY 2012 repeat in 5 years NEG dysplasia; colonoscopy done 02/24/15; Colonoscopy done 04/29/[address] Blunt
--- OUTSIDE RECORDS SUMMARY | 2024-05-15 13:31 | XMS_ITS ---
Author Organization Geoffrey Murillo MD Address [address] [place], [place] [id number] Care Team Providers Care Clinical Laboratory Technician Name Role Phone Geoffrey Murillo Primary Care Provider Allergies No Known Allergies Results Component Value Reference Range Notes Occult Blood, Stool, Guaiac Reviewed date:04/09/2023 07:40:35 PM Interpretation:Negative Performing Lab: Notes/Report: Negative Occult Blood, Stool, Guaiac Neg REASON FOR VISIT annual visit, NO Covid symptoms Social History Tobacco Use: Social History Observation [...] Never (0 point) Points 1 Interpretation Negative Vital Signs Blood pressure systolic 126 mm Hg 04/09/19 24 Blood pressure diastolic 78 mm Hg 024 Height 67 in 04/09/2023 Weight 163 lbs 04/09/2023 BMI 25.53 kg/m2 04/09/2023 Encounters Encounter Location Date Provider Diagnosis Geoffrey Murillo MD [address] [place], [place] [phone] 04/09/2023 Geoffrey Murillo Skin lesion L98.9 ; Labile hypertension I10 ; Ulcerative colitis without complications, unspecified ulcerative colitis K51.90 ; Prediabetes R73.03 ; Colon cancer screening Z12.11 and Depression screening Z13.31 Assessments Encounter Date Diagnosis (ICD Code) Assessment Notes Treatment Notes Treatment Clinical Notes Section Notes 04/09/2023 Skin lesion (ICD-10 - L98.9) skin lesion right hand, to go to [email or web address]/ info given to patient to call and make his own appt 04/09/2023 Labile hypertension (ICD-10 - I10) doing well, will continue current regiment 04/09/2023 Ulcerative colitis without complications, unspecified ulcerative colitis (ICD-10 - K51.90) in remission, will continue to monitor 04/09/2023 Prediabetes (ICD-10 - R73.03) stable, no need for medication at this time 04/09/2023 Colon cancer screening (ICD-10 - Z12.11) guaiac negative 04/09/2023 Depression screening (ICD-10 - Z13.31) negative screen Plan Of Treatment Treatment Notes Assessment Notes Skin lesion skin lesion right wynne nd, to go to [email or web address]/ info given to patient to call and make his own appt Labile hypertension doing well, will con tinue current regiment Ulcerative colitis without c omplications, unspecified ulcerative colitis in remission, will continue to monitor Prediabetes stable, no need for medication at this time Colon cancer screening guaiac negative Depression screening negative screen Next Appt Details Follow Up: 1 Year, Reason: Provider Name:Geoffrey drummond, 05/22/2024 02:30:00 PM, [address], [address], [place], [place], [id number], Progress Notes * Gilbert SHAW WDOB: [birth year] (68 yo M)Acc No.[id number]:04/09/2023 Progress Notes Patient:?Gilbert Shaw W Provider:?Geoffrey Murillo MD :1955???Age:68 Y???Sex:Male [place] e:04/09/2023 Address: [address], [id number] Subjective: * Chief Complaints: * ???Annual visitNO Covid symp toms * HPI: ???Depression Screening:?PHQ-9?Little interest or pleasure in doing things?Not at all,?Feeling down, depressed, or hopeless?Not at all,?Trouble falling or staying asleep, or sleeping too much?Not at all,?Feeling tired or having little energy?Not at all,?Poor appetite or overeating?Not at all,?Feeling bad about yourself or that you are a failure, or have let yourself or your family down?Not at all,?Trouble concentrating on things, such as reading the newspaper or watching television?Not at all,?Moving or speaking so slowly that other people could have noticed; or the opposite, being so fidgety or restless that you have been moving around a lot more than usual?Not at all,?Thoughts that you would be better off or of hurting yourself in some way?Not at all,?Total Score?0.?Interpretation and Intervention?Depression Screening Findings?Negative,?Follow-Up for Depression?: review of PHQ-9 found negative result, no follow-up needed.?Communication Needs:?Communication Needs?Does the patient have a hearing impairment?No,?Does the patient have a vision impairment??Yes,?If yes, what is the vision impairment??Glasses,?Does the patient have a cognition impairment??No.?Fall Risk:?History?Have you had any falls with injury in the past year??No,?Have you had two or more falls in the past year??No.?SDOH Questions:?SDOH Questions?In the past year have you been worried about losing housing??No,?In the past year have you or any family members you live with been unable to get any of the following when it was really needed? Check all that apply:?None.?Symptom(s):? dian a 68 yo male here for annual visit with review of recent labs and follow up of chronic issues. * ROS:?General/Constitutional:?Patient denies?fatigue , headache.?Change in appetite?denies.?Chills?denies.?Fever?denies.?Ophthalmologic:?Blurred vision?denies.?Discharge?denies.?Pain?denies.?ENT:?Patient denies?decreased sense of smell , any loss of taste , sore throat.?Decreased hearing?denies.?Sore throat?denies.?Swollen glands?denies.?Endocrine:?Cold intolerance?denies.?Excessive thirst?denies.?Heat intolerance?denies.?Weight loss?denies.?Respiratory:?Cough?denies.?Shortness of breath at rest?denies.?Shortness of breath with exertion?denies.?Wheezing?denies.?Cardiovascular:?Chest pain at rest?denies.?Chest pain with exertion?denies.?Irregular heartbeat?denies.?Shortness of breath?denies.?Gastrointestinal:?Abdominal pain?denies.?Change in bowel habits?denies.?Diarrhea?denies.?Nausea?denies.?Rectal bleeding?denies.?Vomiting?denies .?Genitourinary:?Blood in urine?denies.?Difficulty urinating?denies.?Frequent urination?denies.?Musculoskeletal:?Patient denies?muscle aches.?Painful joints?denies.?Weakness?denies.?Peripheral Vascular:?Patient denies?red and blue toes.?Skin:?Dry skin?denies.?Itching?denies.?Denies?Mole(s),? changes in moles, new moles or any lesions of concern.?Denies?Photosensitivity.?Rash?denies.?Neurologic:?Dizziness?denies.?Fainting?denies.?Headache?denies.? * Medical History:? * Surgical History:? * Hospitalization/Major Diagno stic Procedure:? * Family History:?Father: dece ased 75 yrs.?Mother: 94 yrs, diagnosed with Alzheimer disease.?2 sister(s) . 1 daughter(s) . .? Pneumonia Malnutition-Father Mother- Healthy, Denies mental health/substance abuse family history, Denies mental health/substance abuse family history, Denies mental health/substance abuse family history, Denies mental health/substance abuse family history. * Social History:?Tobacco Use:?Tobacco Use/Smoking?Patient is a?nonsmoker,?Additional Findings: Tobacco Non-User?Current non-smoker, currently using no form of tobacco.?Drugs/Alcohol:?Alcohol Screen?Did you have a drink containing alcohol in the past year??Yes,?How often did you have a drink containing alcohol in the past year??Monthly or less (1 point),?How many drinks did you have on a typical day when you were drinking in the past year??1 or 2 drinks (0 point),?How often did you have 6 or more drinks on one occasion in the past year??Never (0 point),?Points?1,?Interpretation?Negative.?Miscellaneous:?Caffeine: yes, 2-3 cups per day. Children: yes. Community involvements: yes. Exercise: yes, weights push ups in the summer rides a bike once a week walks the dog everyday x 1 mile. Housing: owning. Living with: spouse. Marital status: . Occupation: works full-time. Pets: dogs , catsx2. no Travel outside of the [place]. * Medications:?None * Allergies:?N.K.D.A.yes[Aller gies Verified] Objective: * Vitals:?Ht: 67, Wt:163, BMI: 25.53, BP: 152/84,repeat:126/78, Repeat BP:126/78. * ???Past Orders: ???Lab:Comprehensive Met. Davon granados (Order Date - 03/29/2023) (Collection Date - 03/29/2023) ? Value Reference Range ?Sodium 141 135-145 - mmo l/L ?Bilirubin Total 0.6 0.0- 1.0 - mg/dL ?Aspartate Amino Transferase 21 5-37 - U/L ?Alanine Aminotransferase 17 0-40 - U/L ?Total Protein 7.7 6.5-8. 0 - g/dL ?Albumin Level 4.3 3.5-5. 0 - g/dL ?Alkaline Phosphatase 77 39-117 - U/L ?Potassium 4.3 3.3-5.1 - mmol/L ?Chloride 108 96-108 - mm ol/L ?Carbon Dioxide 26 22-29 - mmol/L ?Anion Gap 11 L 12-20 - ?Blood Urea Nitrogen 16 9-16 - mg/dL ?Creatinine 1.08 0.5-1.4 - mg/dL ?Estimated Glomerular Filt Rate > 60 - ?Glucose Random 108 60-11 5 - mg/dL ?Calcium 9.5 8.4-10.2 - m g/dL ???Lab:Complete Blood Count Auto Diff (Order Date - 03/29/2023) (Collection Date - 03/29/2023) ? Value Reference Range ?White Blood Count 6.6 4. 8-10.8 - X10*3/uL ?Red Blood Count 5.25 4.60 -5.80 - X10*6/uL ?Hemoglobin 15.8 14.0-18.0 - g/dl ?Hematocrit 47.9 42.0-52.0 - % ?Mean Corpuscular Volume 91.2 80.0-98.0 - fL ?Mean Corpuscular Hemoglobin 30.1 27.0-33.0 - pg ?Mean Corpuscular HGB Conc 33.0 31.0-36.0 - g/dl ?Red Cell Distribution Width 11.9 11.0-16.0 - % ?Platelet Count 218 160-4 00 - X10*3/uL ?Mean Platelet Volume 11.8 9.4-12.4 - fL ?Neutrophils Percent Auto 58.0 45-73 - % ?Imm Gran Pct Auto 0.6 H 0. 0-0.4 - % ?Lymphocytes Percent Auto 26.4 20-40 - % ?Monocytes Percent Auto 10.0 2-11 - % ?Eosinophils Percent Auto 4.1 H 0-4 - % ?Basophils Percent Auto 0.9 0-2 - % ?NRBC Pct Auto 0.0 0.0-0. 2 - /100WBC ?Neutrophils Absolute Auto 3.8 2.0-8.3 - x10*3/uL ?Imm Gran Abs Auto 0.04 H 0. 00-0.03 - X10*3/uL ?Lymphocytes Absolute Auto 1.8 1.2-4.9 - X10*3/uL ?Monocytes Absolute Auto 0.7 0.1-1.2 - X10*3/uL ?Eosinophils Absolute Auto 0.3 0.0-0.4 - X10*3/uL ?Basophils Absolute Auto 0.1 0.0-0.2 - X10*3/uL ?NRBC Abs Auto 0.000 0.0-0. 012 - X10*3/uL ???Lab:Lipid Panel (Order Da te - 03/29/2023) (Collection Date - 03/29/2023) ? Value Reference Range ?Triglycerides 45 <150 - mg/dL ?Cholesterol 184 <200 - m g/dL ?LDL Cholesterol Calculated 103 H <100 - mg/dL ?HDL Cholesterol 72 >40 - mg/dL ???Lab:PSA,Total (Free>4and< 10) (Order Date - 03/29/2023) (Collection Date - 03/29/2023) ? Value Reference Range ?PSA,Total (Free>4and<10) 0.70 0.00-4.00 - ng/mL ???Lab:UA ClnCatch+Micro w/r flx Cult (Order Date - 03/29/2023) (Collection Date - 03/29/2023) ? Value Reference Range ?Color Urine Yellow - ?Appearance Urine Clear - ?PH 6.0 5.0-9.0 - ?Glucose Urine UA Negative Neg ative - mg/dL ?Urine Blood Negative Negative - ?Specific [place] - Urine 1.010 1.005-1.025 - ?Urine Protein Negative Neg-Tr daniel - mg/dL ?Urine Ketones Negative Negati ve - mg/dL ?Nitrite Urine Negative Negati ve - ?Leukocyte Esterase Urine Negative Negative - ?RBC Urine 0-2 0-2 - /HPF ?WBC Urine 0-5 0-5 - /HPF ?Squamous Epithelial Cell Urine 0-2 0-2 - /HPF ?Bacteria Urine None Seen None Seen - ?Hyaline Casts Urine 0-2 0-2 - /LPF * Examination: ???General Examination: ?GENERAL APPEARANCE:?well developed, well nourished, in no acute distress.?HEAD:?normocephalic, atraumatic.?EYES:?pupils equal, round, reactive to light and accommodation, sclera non-icteric.?EARS:?normal.?ORAL CAVITY:?mucosa moist.?THROAT:?clear.?NECK/THYROID:?neck supple, full range of motion, no cervical lymphadenopathy, no bruits.?SKIN:?warm and dry, no suspicious lesions, abnormal rt hand with a lesion that is one half inch in diameter .?HEART:?regular rate and rhythm, S1, S2 normal, no murmurs.?LUNGS:?clear to auscultation bilaterally.?ABDOMEN:?soft, nontender, nondistended, bowel sounds present, normal, no organomegaly , no masses palpable.?RECTAL EXAM:?normal tone, no external hemorrhoids, no masses palpable, prostate normal, stool guaiac negative.?MALE GENITOURINARY:?circumcised, no testicular mass, testes descended bilaterally.?EXTREMITIES:?no clubbing, cyanosis, or edema.?NEUROLOGIC:?nonfocal, motor strength normal upper and lower extremities, sensory exam intact.? Assessment: * Assessment: 1.?Skin lesion - L98.9 (Prim clyde)?2.?Labile hypertension - I10?3.?Ulcerative colitis without complications, unspecified ulcerative colitis - K51.90?4.?Prediabetes - R73.03?5.?Colon cancer screening - Z12.11?6.?Depression screening - Z13.31? Plan: * Treatment: 2.?Labile hypertension? Notes: doing well, will continue current regiment.?? 3.?Ulcerative colitis withou t complications, unspecified ulcerative colitis? Notes: in remission, will continue to monitor.?? 4.?Prediabetes? Notes: stable, no need for medication at this time.?? 5.?Colon cancer screening?LAB: Occult Blood, Stool, Guaiac?Negative ? Value Reference Range ?Occult Blood, Stool, Guaiac Neg Notes: guaiac negative.??6.?Depression screening? Notes: negative screen.?? * Procedure Codes:?58676 TEST FOR BLOOD, FECES * Preventive Medicine:? ??Counseling:?Care goal follow-up plan:?Counseling for abnormal BMI provided?Yes,?Above Normal BMI Follow-up?Giving encouragement to exercise.? * Follow Up:?1 Year * * Sign off status: Completed true * Provider:?Geoffrey Murillo MD Date:?0 04/09/2023 Generated for Naseem jalloh/Nestor/eTransmitting on:?05/15/2024 01:30 PM EST History and Physical Notes * HPI (History of Present Illness) Category Sub-Category Detail Notes Category Not es Symptom(s) patientis a 68 yo male here for annual visit with review of recent labs and follow up of chronic issues. Depression Screening PHQ-9 Little inte rest or pleasure in doing things: Not at all Feeling down, depressed, or hopeless: No t at all Trouble falling or staying asleep, or sl eeping too much: Not at all Feeling tired or having little energy: N ot at all Poor appetite or overeating: Not at all Feeling bad about yourself o r that you are a failure, or have let yourself or your family down: Not at all Trouble concentrating on thi ngs, such as reading the newspaper or watching television: Not at all Moving or speaking so slowly that other people could have noticed; or the opposite, being so fidgety or restless that you have been moving around a lot more than usual: Not at all Thoughts that you would be b binta off or of hurting yourself in some way: Not at all Total Score: 0 Interpretation and Intervention Depression [place] Findings: Negative Follow-Up for Depression: : review of PH Q-9 found negative result, no follow-up needed SDOH Questions SDOH Questions In the past year have you been worried about losing housing?: No In the past year have you or any family members you live with been unable to get any of the following when it was really needed? Check all that apply:: None Fall Risk History Have you had any falls with injury i n the past year?: No Have you had two or more falls in the year?: No Communication Needs Communication Needs Does the patient have a hearing impairment: No Does the patient have a vision impairmen t?: Yes ?If yes, what is the vision impairment?: Glasses Does the patient have a cognition impair ment?: No Examination Category Sub-Category Detail Notes Category Not es General Examination GENERAL APPEARANCE: well dev eloped, well nourished, in no acute distress HEAD: normocephalic, atrau matic EYES: pupils equal, round, reactive to light and accommodation, sclera non- icteric EARS: normal THROAT: clear NECK/THYROID: neck supple, full ra nge of motion, no cervical lymphadenopathy, no bruits HEART: regular rate and rhy thm, S1, S2 normal, no murmurs LUNGS: clear to auscultatio n bilaterally ABDOMEN: soft, nontender, non distended, bowel sounds present, normal, no organomegaly , no masses palpable NEUROLOGIC: nonfocal, motor stre ngth normal upper and lower extremities, sensory exam intact SKIN: warm and dry, no alberta picious lesions, abnormal rt hand with a lesion that is one half inch in diameter EXTREMITIES: no clubbing, cyanosi s, or edema MALE GENITOURINARY: circumcised, no test icular mass, testes descended bilaterally RECTAL EXAM: normal tone, no exte rnal hemorrhoids, no masses palpable, prostate normal, stool guaiac negative ORAL CAVITY: mucosa moist
== END 2024-05-15 11:22 | disposition home or self-care (01) ==
LOC: HO.LNP 11:21
PROVIDERS: Visit Provider Internal Medicine
DX: Z00.00 Encounter for general adult medical examination without abnormal findings (principal); I10 Essential (primary) hypertension; R73.03 Prediabetes; Z12.5 Encounter for screening for malignant neoplasm of prostate
CPT/HCPCS: 80061; 81001; 82043; 82570; 83036; 84153; 85025

== ENCOUNTER 2024-05-22 15:20 | Outpatient (REF) | payer BC, SELFPAY ==
[2024-05-22 15:22] LABS: MANUAL DIFF FLAG NO
[2024-05-22 15:25] LABS: Basophils Absolute Auto 0.1 X10*3/uL (0.0-0.2); Basophils Percent Auto 1.4 % (0-2); Eosinophils Absolute Auto 0.7 X10*3/uL (0.0-0.4); Eosinophils Percent Auto 9.4 % (0-4); Hematocrit 44.6 % (42.0-52.0); Hemoglobin 14.8 g/dl (14.0-18.0); Imm Gran Abs Auto 0.03 X10*3/uL (0.00-0.03); Imm Gran Pct Auto 0.4 % (0.0-0.4); Lymphocytes Absolute Auto 2.2 X10*3/uL (1.2-4.9); Lymphocytes Percent Auto 30.6 % (20-40); Mean Corpuscular HGB Conc 33.2 g/dl (31.0-36.0); Mean Corpuscular Hemoglobin 29.7 pg (27.0-33.0); Mean Corpuscular Volume 89.6 fL (80.0-98.0); Mean Platelet Volume 12.3 fL (9.4-12.4); Monocytes Absolute Auto 0.7 X10*3/uL (0.1-1.2); Neutrophils Absolute Auto 3.5 x10*3/uL (2.0-8.3); Neutrophils Percent Auto 48.2 % (45-73); Platelet Count 153 X10*3/uL (160-400); Red Blood Count 4.98 X10*6/uL (4.60-5.80); Red Cell Distribution Width 12.4 % (11.0-16.0); White Blood Count 7.3 X10*3/uL (4.8-10.8)
--- OUTSIDE RECORDS SUMMARY | 2024-05-22 16:56 | XMS_ITS | Patient Health Record ---
Author Organization [facility] Address [address] [place] [address] Care Team Providers Care Vice President Of Talent Management Name Role Phone Chidi SANFORD, Geoffrey Primary Care Provider Dennis Brito [phone] Allergies Allergen (clinical drug ingredient) Drug/Non Drug Allergy documented on EMR Reaction Allergy Type Onset Date Status aspirin Aspirin in high doses Drug Allergy Act gloria Reason For Referral No Information Immunizations Vaccine Route Administration Date Status Comme nts Influenza Unknown 12/17/2019 Administered Problems Problem Type SNOMED Code ICD Code Onset Dates Problem Status W/U Status Risk Notes Problem Screening for malignant neoplasm of colon (723678481) Encounter for screening for malignant neoplasm of colon (Z12.11) Active confirmed Problem Ulcerative colitis (38967477) Ulcerative colitis (K51.90) Active confirmed Plan Of Treatment Pending Test Test Name Order Date Pathology 04/29/2020 Future Test Test Name Order Date COLONOSCOPY 11/18/2014 COLONOSCOPY 04/05/2020 Insurance Providers Payer Name Payer Address Payer Phone Subscriber Number Group Number Insured Name Patient Relationship to Insured Coverage Start Date Coverage End Date [facility] [address] [place], [place] [id number] [phone] [id number] KAL MEYER Self - patient is the insured Medical (General) History Medical History History ICD Code Ulcerative colitis, [...] his sulfasalazine since at least 2013 Denies ND,DM,CVA,Lung disease,renal dise ase Surgical History Surgery Date(Month/Year)
--- OUTSIDE RECORDS SUMMARY | 2024-05-22 16:56 | XMS_ITS ---
Author Organization Geoffrey Murillo MD Address [address] [place], [place] [id number] Care Team Providers Care Barrel Tester Name Role Phone Geoffrey Murillo Primary Care Provider [phone] Allergies No Known Allergies Results Component Value Reference Range Notes Complete Blood Count Auto Di ff (Not yet reviewed by provider) Interpretation: Performing Lab:[facility], [address] [place] [phone] Notes/Report: White Blood Count 7.3 4.8-10.8 X10*3/uL Red Blood Count 4.98 4.60-5.80 X10*6/uL Hemoglobin 14.8 14.0-18.0 g/dl Hematocrit 44.6 42.0-52.0 % Mean Corpuscular Volume 89.6 80.0-98.0 fL Mean Corpuscular Hemoglobin 29.7 27.0-33.0 pg Mean Corpuscular HGB Conc 33.2 31.0-36.0 g/dl Red Cell Distribution Width 12.4 11.0-16.0 % Platelet Count 153 160-400 X10*3/uL Mean Platelet Volume 12.3 9.4-12.4 fL Neutrophils Percent Auto 48.2 45-73 % Imm Gran Pct Auto 0.4 0.0-0.4 % Lymphocytes Percent Auto 30.6 20-40 % Monocytes Percent Auto 10.0 2-11 % Eosinophils Percent Auto 9.4 0-4 % Basophils Percent Auto 1.4 0-2 % NRBC Pct Auto 0.0 0.0-0.2 /100WBC Neutrophils Absolute Auto 3.5 2.0-8.3 x10*3/u L Imm Gran Abs Auto 0.03 0.00-0.03 X10*3/uL Lymphocytes Absolute Auto 2.2 1.2-4.9 X10*3/u L Monocytes Absolute Auto 0.7 0.1-1.2 X10*3/uL Eosinophils Absolute Auto 0.7 0.0-0.4 X10*3/u L Basophils Absolute Auto 0.1 0.0-0.2 X10*3/uL NRBC Abs Auto 0.000 0.0-0.012 X10*3/uL Occult Blood, Stool, Guaiac Reviewed date:05/22/2024 01:43:05 PM Interpretation:Negative Performing Lab: Notes/Report: Negative Occult Blood, Stool, Guaiac Neg REASON FOR VISIT annual visit/ needs repeat CBC Social History Tobacco Use: Social History Observation [...] Interpretation Negative Vital Signs Blood pressure systolic 152 mm Hg 05/23/19 25 Blood pressure diastolic 86 mm Hg 025 Height 67 in 05/22/2024 Weight 164 lbs 05/22/2024 BMI 25.68 kg/m2 05/22/2024 Encounters Encounter Location Date Provider Diagnosis Geoffrey Murillo MD [address] [place] [address] [address] [place], [place] [phone] 05/22/2024 Geoffrey Murillo Thrombocytopenia D69 .6 ; Annual physical exam Z00.00 ; Ulcerative colitis without complications, unspecified ulcerative colitis K51.90 ; Prediabetes R73.03 ; Labile hypertension I10 ; Colon cancer screening Z12.11 and Depression screening Z13.31 Assessments Encounter Date Diagnosis (ICD Code) Assessment Notes Treatment Notes Treatment Clinical Notes Section Notes 05/22/2024 Thrombocytopenia (ICD-10 - D69.6) will repeat 05/22/2024 Annual physical exam (ICD-10 - Z00.00) labs reviewed and discussed with patient 05/22/2024 Ulcerative colitis without complications, unspecified ulcerative colitis (ICD-10 - K51.90) no signs of involvement for years 05/22/2024 Prediabetes (ICD-10 - R73.03) doing well, no need for medication at this time 05/22/2024 Labile hypertension (ICD-10 - I10) stable, will continue current regiment 05/22/2024 Colon cancer screening (ICD-10 - Z12.11) guaiac negative 05/22/2024 Depression screening (ICD-10 - Z13.31) negative screen Plan Of Treatment Treatment Notes Assessment Notes Thrombocytopenia will repeat Annual physical exam labs reviewed and d iscussed with patient Ulcerative colitis without c omplications, unspecified ulcerative colitis no signs of involvement for years Prediabetes doing well, no need for medication at this time Labile hypertension stable, will continu e current regiment Colon cancer screening guaiac negative Depression screening negative screen Pending Test Test Name Order Date Complete Blood Count Auto Diff 5 Next Appt Details Follow Up: 1 Year, Reason: Provider Name:Geoffrey drummond, 05/21/2025 07:15:00 AM, [address] [place] [address], [address] [place] [address], [phone], Provider Name:Geoffrey drummond, 05/28/2025 01:00:00 PM, [address] [place] [address], [address], [place], [place], [phone], Progress Notes * Gilbert SHAW WDOB: 7 (69 yo M)Acc No.[id number]:05/22/2024 Progress Notes Patient:?Gilbert SHAW W Provider:?Geoffrey Murillo MD :1955???Age:69 Y???Sex:Male Stanford e:05/22/2024 Address:[id number] Subjective: * Chief Complaints: * ???1. annual visit/ needs re peat [facility]. * HPI: ???Depression Screening:?PHQ-9?Little interest or pleasure [...] around a lot more than usual?Not at all.?Interpretation and Intervention?Depression Screening Findings?Negative,?Follow-Up for Depression?: review [...] it was really needed? Check all that apply:?None.?Symptom(s):?patient is a 69 yo male here for annual visit with review of recent labs and follow up of chronic issues. * ROS:?General/Constitutional:?Change in appetite?denies.?Chills?denies.?Fever?denies.?Ophthalmologic:?Blurred vision?denies.?Discharge?denies.?Pain?denies.?ENT:?Decreased hearing?denies.?Sore throat?denies.?Swollen glands?denies.?Endocrine:?Cold intolerance?denies.?Excessive thirst?denies.?Heat intolerance?denies.?Weight loss?denies.?Respiratory:?Cough?denies.?Shortness of breath at rest?denies.?Shortness of breath with exertion?denies.?Wheezing?denies.?Cardiovascular:?Chest pain at rest?denies.?Chest pain with exertion?denies.?Irregular heartbeat?denies.?Shortness of breath?denies.?Gastrointestinal:?Abdominal pain?denies.?Change in bowel habits?denies.?Diarrhea?denies.?Nausea?denies.?Rectal bleeding?denies.?Vomiting?denies .?Genitourinary:?Blood in urine?denies.?Difficulty urinating?denies.?Frequent urination?denies.?Musculoskeletal:?Painful joints?denies.?Weakness?denies.?Skin:?Dry skin?denies.?Itching?denies.?Denies?Mole(s),? changes in moles, new moles or any lesions of concern.?Denies?Photosensitivity.?Rash?denies.?Neurologic:?Dizziness?denies.?Fainting?denies.?Headache?denies.? * Medical History:?COLONOSCOPY 2012 repeat in 5 years NEG dysplasia; colonoscopy done 02/24/15; Colonoscopy done 04/29/[address] Blunt. * Family History:?Father: dece ased 75 yrs.?Mother: [...] Occupation: works full-time. Pets: dogs , catsx2. Travel outside of the [place]: yes, [place]. * Medications:?None * Allergies:?N.K.D.A. Objective: * Vitals:?Ht: 67, Wt: 164, BMI :25.68, BP:152/86, Repeat BP:136/80, Wt-k.39. * ???Past Orders: ???Lab:PSA,Total (Free>4and< 10) (Order Date - 05/15/2024) (Collection Date & Time - 05/15/2024 08:00 AM) ? Value Reference Range ?PSA,Total (Free>4and<10) 0.74 0.00-4.00 - ng/mL ???Lab:Microalbumin, Random (Order 05/15/2024) (Collection & Time - 05/15/2024 08:00 AM) ? Value Reference Range ?Creatinine Urine 104.85 - m g/dL ?Microalbumin Urine < 5.0 - mg/L ?Microalbum Creatinine Ratio Ur TNP <30 - ug/mg cr ???Lab:Hemoglobin A1c (Order 05/15/2024) (Collection & Time - 05/15/2024 08:00 AM) ? Value Reference Range ?Hemoglobin A1c % 6.0 <6. 0 - % ?Estimated Average Glucose 126 - mg/dL ???Lab:Lipid Panel (Order Da 05/15/2024) (Collection Date & Time - 05/15/2024 08:00 AM) ? Value Reference Range ?Triglycerides 55 <150 - mg/dL ?Cholesterol 173 <200 - m g/dL ?LDL Cholesterol Calculated 90 <100 - mg/dL ?HDL Cholesterol 72 >40 - mg/dL ???Lab:UA ClnCatch+Micro w/r flx Cult (Order 05/15/2024) (Collection Date & Time - 05/15/2024 08:00 AM) ? Value Reference Range ?Color Urine Yellow - ?Appearance Urine Clear - ?PH 6.5 5.0-9.0 - ?Glucose Urine UA Negative Neg ative - mg/dL ?Urine Blood Negative Negative - ?Specific [place] - Urine 1.015 1.005-1.025 - ?Urine Protein Negative Neg-Tr daniel [...] lymphadenopathy, no bruits.?SKIN:?warm and dry, no suspicious lesions.?HEART:?regular rate and rhythm, S1, S2 normal, no murmurs.?LUNGS:?clear to auscultation bilaterally.?ABDOMEN:?soft, nontender, nondistended, bowel sounds present, normal, no organomegaly , no masses palpable.?RECTAL EXAM:?normal tone, no external hemorrhoids, no masses palpable, prostate normal, stool guaiac negative.?MALE GENITOURINARY:?circumcised, no testicular mass, testes descended bilaterally.?EXTREMITIES:?no clubbing, cyanosis, or edema.?NEUROLOGIC:?nonfocal, motor strength normal upper and lower extremities, sensory exam intact.? Assessment: * Assessment: 1.?Annual physical exam - Z0 0.00 (Primary)???2.?Thrombocytopenia - D69.6???3.?Ulcerative colitis without complications, unspecified ulcerative colitis - K51.90???4.?Prediabetes - R73.03???5.?Labile hypertension - I10???6.?Colon cancer screening - Z12.11???7.?Depression screening - Z13.31??? Plan: * Treatment: 2.?Thrombocytopenia?LAB: Complete Blood Count Auto Diff (Collection Date & Time - 05/22/2024 01:00 PM) Notes: will repeat?? 3.?Ulcerative colitis withou t complications, unspecified ulcerative colitis? Notes: no signs of involvement for years?? 4.?Prediabetes? Notes: doing well, no need for medication at this time?? 5.?Labile hypertension? Notes: stable, will continue current regiment?? 6.?Colon cancer screening?LAB: Occult Blood, Stool, Guaiac (Collection Date & Time - 05/22/2024)?Negative ? Value Reference Range ?Occult Blood, Stool, Guaiac Neg Notes: guaiac negative??7.?Depression screening? Notes: negative screen?? * Procedure Codes:?46058 VENIP UNCT, ROUTINE*, 43171 TEST FOR BLOOD, FECES * Follow Up:?1 Year * * The named appointment provid er may or may not be the originator of this progress note, and it is not deemed complete until electronically signed by the appointment provider. Sign off status: Pending * Provider:?Geoffrey Murillo MD Date:?0 05/22/2024 Generated for Naseem jalloh/Nestor/Christinesmitting on:?05/22/2024 04:56 PM EST History and Physical Notes * HPI (History of Present Illness) Category Sub-Category Detail Notes Category Not es Symptom(s) patient is a 69 yo male here for annual visit with [...] lot more than usual: Not at all Interpretation and Intervention Depression [place] Findings: [...] had two or more falls in the st year?: No Communication Needs Communication Needs Does [...] SKIN: warm and dry, no alberta picious lesions EXTREMITIES: no clubbing, cyanosi s, or edema MALE GENITOURINARY: circumcised, no test icular mass, testes descended bilaterally RECTAL EXAM: normal tone, no exte rnal hemorrhoids, no masses palpable, prostate normal, stool guaiac negative ORAL CAVITY: mucosa moist
--- OUTSIDE RECORDS SUMMARY | 2024-05-22 16:56 | XMS_ITS ---
Author Organization Geoffrey Murillo MD Address [address] [place], [place] [id number] Care Team Providers Care Mold Stamper Name Role Phone Geoffrey Murillo Primary Care Provider [phone] Results Component Value Reference Range Notes Complete Blood Count Auto Di ff (Not yet reviewed by provider) Interpretation:05-22-2024 Performing Lab:[facility], [address] [place] [phone] Notes/Report: White Blood Count 5.4 4.8-10.8 X10*3/uL [...] Auto 0.000 0.0-0.012 X10*3/uL Lipid Panel Reviewed date:05/15/2024 12:42:12 PM Interpretation: Performing Lab:[facility], [address] [place] [phone] Notes/Report: Triglycerides 55 <150 mg/dL Desirable Triglyceride: [...] (Free>4and<10) Reviewed date:05/15/2024 12:43:54 PM Interpretation: Performing Lab:[facility], [address] [place] [phone] Notes/Report: PSA,Total (Free>4and<10) 0.74 0.00-4.00 ng/mL A [...] Random Reviewed date:05/15/2024 12:43:47 PM Interpretation: Performing Lab:[address] [phone] Notes/Report: Creatinine Urine 104.85 Microalbumin Urine < 5.0 Microalbum/Creatinine Ratio Ur TNP <30 ug/mg cr Unable to calculate albumin/creatinine ratio due to low microalbumin or creatinine result. Hemoglobin A1c Reviewed date:05/15/2024 12:42:47 PM Interpretation: Performing Lab:[address] [phone] Notes/Report: Hemoglobin A1c % 6.0 <6.0 % [...] average glucose, using the formula of the U6Z-Jedganq Average Glucose study (ADAG), Diabetes Care, Vol.31,#8, Oct. 2007 UA ClnCatch+Micro w/rflx Cul t Reviewed date:05/15/2024 04:28:44 PM Interpretation: Performing Lab:[address] [phone] Notes/Report: Urine, Clean Catch Color Urine Yellow Appearance Urine Clear PH 6.5 5.0-9.0 Glucose Urine UA Negative Negative mg/dL Urine Blood Negative Negative Specific [place] - Urine 1.015 1.005-1.025 Urine Protein Negative Neg-Trace mg/dL Urine Ketones Negative Negative mg/dL Nitrite Urine Negative Negative Leukocyte Esterase Urine Negative Negative RBC Urine 0-2 0-2 /HPF WBC Urine 0-5 0-5 /HPF Squamous Epithelial Cell Urine 0-2 0-2 /HPF Bacteria Urine None Seen None Seen Hyaline Casts Urine 0-2 0-2 /LPF REASON FOR VISIT fasting yearly labs Encounters Encounter Location Date Provider Diagnosis Geoffrey Murillo MD [address] [place] [phone] 05/15/2024 Geoffrey Murillo Blood tests for rout [...] Order Date Complete Blood Count Auto Diff Next Appt Details Provider Name:Geoffrey Mcginnis ieaixa, 05/21/2025 07:15:00 AM, [address] [place] [address], [address], [phone], Provider Name:Geoffrey drummond, 05/28/2025 01:00:00 PM, [address] [place] [address], [address], [phone], Progress Notes * Gilbert SHAW WDOB: 7 (69 yo M)Acc No.[id number]:05/15/2024 Progress Note Patient:?Gilbert SHAW W Provider:?Geoffrey Murillo MD :1955???Age:69 Y???Sex:Male Stanford e:05/15/2024 Address:[address] [place], [place] [phone] Subjective: * Chief Complaints: * ???1. Fasting [...] ?LAB: PSA,Total (Free>4and<10) (Collection Date & Time 05/15/2024 08:00 AM) ?LAB: Microalbumin, Random (Collection [...] & Time - 05/15/2024 08:00 AM) * Procedure Codes:?86753 VENIP UNCT, ROUTINE* * * The named appointment provid er may or may not be the originator of this progress note, and it is not deemed complete until electronically signed by the appointment provider. Sign off status: Pending * Provider:?Geoffrey Murillo MD Date:?0 05/15/2024 Generated for Naseem jalloh/Nestor/Tonyitting on:?05/22/2024 04:56 PM EST
--- OUTSIDE RECORDS SUMMARY | 2024-05-22 16:57 | XMS_ITS | Patient Health Record ---
Author Organization Geoffrey Murillo MD Address [address] [place], [place] [phone] Care Team Providers Care Video Production Assistant Name Role Phone Geoffrey Murillo Primary Care Provider Allergies No Known Allergies Results Component Value Reference Range Notes Complete Blood Count Auto Di ff (Not yet reviewed by provider) Interpretation:05-22-2024 Performing Lab:[facility], [address] [place] [phone] Notes/Report: White Blood Count 5.4 4.8-10.8 X10*3/uL [...] Panel Reviewed date:05/15/2024 12:42:12 PM Interpretation: Performing Lab:[facility], [address] [place] [phone] Notes/Report: Triglycerides 55 <150 mg/dL Desirable Triglyceride: [...] (Free>4and<10) Reviewed date:05/15/2024 12:43:54 PM Interpretation: Performing Lab:[facility], [address] [place] [phone] Notes/Report: PSA,Total (Free>4and<10) 0.74 0.00-4.00 ng/mL A [...] Random Reviewed date:05/15/2024 12:43:47 PM Interpretation: Performing Lab:[address] [phone] Notes/Report: Creatinine Urine 104.85 Microalbumin Urine < 5.0 Microalbum/Creatinine Ratio Ur TNP <30 ug/mg cr Unable to calculate albumin/creatinine ratio due to low microalbumin or creatinine result. Hemoglobin A1c Reviewed date:05/15/2024 12:42:47 PM Interpretation: Performing Lab:[address] [phone] Notes/Report: Hemoglobin A1c % 6.0 <6.0 % [...] average glucose, using the formula of the D2H-Wnhjfpw Average Glucose study (ADAG), Diabetes Care, Vol.31,#8, Oct. 2007 UA ClnCatch+Micro w/rflx Cul t Reviewed date:05/15/2024 04:28:44 PM Interpretation: Performing Lab:[address] [phone] Notes/Report: Urine, Clean Catch Color Urine Yellow Appearance Urine Clear PH 6.5 5.0-9.0 Glucose Urine UA Negative Negative mg/dL Urine Blood Negative Negative Specific [place] - Urine 1.015 1.005-1.025 Urine Protein Negative Neg-Trace mg/dL Urine Ketones Negative Negative mg/dL Nitrite Urine Negative Negative Leukocyte Esterase Urine Negative Negative RBC Urine 0-2 0-2 /HPF WBC Urine 0-5 0-5 /HPF Squamous Epithelial Cell Urine 0-2 0-2 /HPF Bacteria Urine None Seen None Seen Hyaline Casts Urine 0-2 0-2 /LPF Complete Blood Count Auto Di ff (Not yet reviewed by provider) Interpretation: Performing Lab:[facility], [address] [place] [phone] Notes/Report: White Blood Count 7.3 4.8-10.8 X10*3/uL [...] Notes/Report: Negative Occult Blood, Stool, Guaiac Neg Reason For Referral No Information Immunizations Vaccine [...] Status W/U Status Risk Notes Problem Thrombocytopenia (324339288) Thrombocytopenia (D69.6) Active confirmed Problem 940738078 Labile hypertension (I10) Active confirmed Problem 80555336 Ulcerative colit is without complications, unspecified ulcerative colitis (K51.90) Active confirmed Problem 381907677 Prediabetes (R73.03) Active confirmed Vital Signs Blood pressure diastolic 86 mm Hg 05/22/2024 Height 67 in 05/22/2024 Blood pressure systolic 152 mm Hg 05/22/2024 Weight 164 lbs 05/22/2024 BMI 25.68 kg/m2 05/22/2024 Encounters Encounter Location Date Provider Diagnosis Geoffrey Murillo MD [address] [place] [phone] 05/15/2024 Geoffrey Murillo Blood tests for rout ine general physical examination Z00.00 ; Labile hypertension I10 ; Thrombocytopenia D69.6 and Prediabetes R73.03 Geoffrey Murillo MD [address] [place] [phone] 05/22/2024 Geoffrey Murillo Thrombocytopenia D69 .6 ; Annual physical exam Z00.00 ; Ulcerative colitis without complications, unspecified ulcerative colitis K51.90 ; Prediabetes R73.03 ; Labile hypertension I10 ; Colon cancer screening Z12.11 and Depression screening Z13.31 Assessments Encounter Date Diagnosis (ICD Code) Assessment Notes Treatment Notes Treatment Clinical Notes Section Notes 05/15/2024 Blood tests for routine general physical examination (ICD-10 - Z00.00) 05/22/2024 Thrombocytopenia (ICD-10 - D69.6) will repeat 05/22/2024 Annual physical exam (ICD-10 - Z00.00) labs reviewed and discussed with patient 05/15/2024 Labile hypertension (ICD-10 - I10) 05/22/2024 Ulcerative colitis without complications, unspecified ulcerative colitis (ICD-10 - K51.90) no signs of involvement for years 05/15/2024 Thrombocytopenia (ICD-10 - D69.6) 05/22/2024 Prediabetes (ICD-10 - R73.03) doing well, no need for medication at this time 05/15/2024 Prediabetes (ICD-10 - R73.03) 05/22/2024 Labile hypertension (ICD-10 - I10) stable, will continue current regiment 05/22/2024 Colon cancer screening (ICD-10 - Z12.11) guaiac negative 05/22/2024 Depression screening (ICD-10 - Z13.31) negative screen Plan Of Treatment Pending Test Test Name Order Date MRA BRAIN NO CONTRAST 01/29/2017 Complete Blood Count Auto Diff Complete Blood Count Auto Diff Next Appt Details Provider Name:Geoffrey Mcginnis ier, 05/21/2025 07:15:00 AM, [address], [address], [place], [place], [phone], Provider Name:Geoffrey Mcginnis hoda, 05/28/2025 01:00:00 PM, [address], [address], [place], [phone], Insurance Providers Payer Name Payer Address Payer Phone Subscriber Number Group Number Insured Name Patient Relationship to Insured Coverage Start Date Coverage End Date [facility] [address] [place], [place] [id number] Gilbert Shaw Self - patient is the insured Medical (General) History Medical History History ICD Code COLONOSCOPY 2012 repeat in 5 years NEG dysplasia; colonoscopy done 02/24/15; Colonoscopy done 04/29/[address] Blunt
--- OUTSIDE RECORDS SUMMARY | 2024-05-22 16:57 | XMS_ITS ---
Author Organization Geoffrey Murillo MD Address [address] [place], [place] [phone] Care Team Providers Care Stencil Typist Name Role Phone Geoffrey Murillo Primary Care [...] Location Date Provider Diagnosis Geoffrey Murillo MD [address] [place] [address] Drive [address] [place] [phone] 04/09/2023 Geoffrey Murillo Skin lesion L98.9 ; Labile hypertension I10 ; Ulcerative colitis without complications, unspecified ulcerative colitis K51.90 ; Prediabetes R73.03 ; Colon cancer screening Z12.11 and Depression screening Z13.31 Assessments Encounter Date Diagnosis (ICD Code) Assessment Notes Treatment Notes Treatment Clinical Notes Section Notes 04/09/2023 Skin lesion (ICD-10 - L98.9) skin lesion right hand, to go to [facility]/ info given to patient to call and [...] lesion right wynne nd, to go to [facility]/ info given to patient to call and [...] Provider Name:Geoffrey drummond, 05/21/2025 07:15:00 AM, [address] [place] [address], Suite [facility], [place], [place], [phone], Provider Name:Geoffrey drummond, 05/28/2025 01:00:00 PM, [address] [place] [address], Suite [facility], [place], [place], [phone], Progress Notes * Gilbert SHAW WDOB: 7 (68 yo M)Acc No.[id number]:04/09/2023 Progress Notes Patient:?Gilbert Shaw Provider:?Geoffrey Murillo MD :1955???Age:68 Y???Sex:Male Stanford e:04/09/2023 [facility] Subjective: * Chief Complaints: * ???Annual visitNO [...] BP:126/78. * ???Past Orders: ???Lab:Comprehensive Met. Davon roberta (Order Date - 03/29/2023) (Collection Date - [...] mg/dL ?Urine Blood Negative Negative - ?Specific [place] - Urine 1.010 1.005-1.025 - ?Urine Protein [...] negative.??6.?Depression screening? Notes: negative screen.?? * Procedure Codes:?63271 TEST FOR BLOOD, FECES * Preventive Medicine:? ??Counseling:?Care goal follow-up plan:?Counseling for abnormal BMI provided?Yes,?Above Normal BMI Follow-up?Giving encouragement to exercise.? * Follow Up:?1 Year * * Sign off status: Completed true * Provider:?Geoffrey Murillo MD Date:?0 04/09/2023 Generated for Naseem jalloh/Nestor/[place] on:?05/22/2024 04:56 PM EST History and Physical [...]
== END 2024-05-22 15:21 | disposition home or self-care (01) ==
LOC: HO.LNP 15:20
PROVIDERS: Visit Provider Internal Medicine
DX: D69.6 Thrombocytopenia, unspecified (principal)
CPT/HCPCS: 85025

== ENCOUNTER 2024-06-22 10:58 | Outpatient (REF) | payer BC, SELFPAY ==
[2024-06-22 11:00] LABS: MANUAL DIFF FLAG NO
[2024-06-22 11:06] LABS: Basophils Absolute Auto 0.1 X10*3/uL (0.0-0.2); Basophils Percent Auto 1.1 % (0-2); Eosinophils Absolute Auto 0.4 X10*3/uL (0.0-0.4); Eosinophils Percent Auto 6.4 % (0-4); Hematocrit 44.5 % (42.0-52.0); Hemoglobin 14.4 g/dl (14.0-18.0); Imm Gran Abs Auto 0.02 X10*3/uL (0.00-0.03); Imm Gran Pct Auto 0.4 % (0.0-0.4); Lymphocytes Absolute Auto 1.8 X10*3/uL (1.2-4.9); Lymphocytes Percent Auto 32.4 % (20-40); Mean Corpuscular HGB Conc 32.4 g/dl (31.0-36.0); Mean Corpuscular Hemoglobin 29.7 pg (27.0-33.0); Mean Corpuscular Volume 91.8 fL (80.0-98.0); Mean Platelet Volume 11.8 fL (9.4-12.4); Monocytes Absolute Auto 0.7 X10*3/uL (0.1-1.2); Monocytes Percent Auto 12.5 % (2-11); Neutrophils Absolute Auto 2.6 x10*3/uL (2.0-8.3); Neutrophils Percent Auto 47.2 % (45-73); Platelet Count 165 X10*3/uL (160-400); Red Blood Count 4.85 X10*6/uL (4.60-5.80); Red Cell Distribution Width 12.4 % (11.0-16.0); White Blood Count 5.5 X10*3/uL (4.8-10.8)
--- OUTSIDE RECORDS SUMMARY | 2024-06-22 13:09 | XMS_ITS ---
Author Organization Geoffrey Murillo MD Address [address] [place], [place] [phone] Care Team Providers Care Library Circulation Department Chief Name Role Phone Geoffrey Murillo Primary Care Provider Allergies No Known Allergies Results Component Value Reference Range Notes Occult Blood, Stool, Guaiac Reviewed date:05/22/2024 01:43:05 PM Interpretation:Negative Performing Lab: Notes/Report: Negative Occult Blood, Stool, Guaiac Neg Complete Blood Count Auto Di ff Reviewed date:05/25/2024 11:44:50 AM Interpretation: Performing Lab:[facility], [address] [place] [phone] Notes/Report: White Blood Count 7.3 4.8-10.8 X10*3/uL [...] X10*3/uL NRBC Abs Auto 0.000 0.0-0.012 X10*3/uL REASON FOR VISIT annual visit/ needs repeat [...] Location Date Provider Diagnosis Geoffrey Murillo MD [address] [place] [address] Drive [address] [place], [place] [phone] 05/22/2024 Geoffrey Murillo Thrombocytopenia D69 .6 ; [...] Reason: Provider Name:Geoffrey drummond, 05/21/2025 07:15:00 AM, [address] [place] [address], [address] [place] [address], [phone], Provider Name:Geoffrey drummond, 05/28/2025 01:00:00 PM, [address] [place] [address], [address], [place], [place], [phone], Progress Notes * Gilbert SHAW WDOB: (69 yo M)Acc No.[id number]:05/22/2024 Progress Notes Patient:?COLINGilbert W Provider:?Geoffrey Murillo MD :1955???Age:69 Y???Sex:Male Stanford e:05/22/2024 Address:[address], [facility] Subjective: * Chief Complaints: * ???annual visit/ needs nikki TABARES * HPI: ???Depression Screening:?PHQ-9?Little interest or pleasure [...] [place]: yes, [place]. * Medications:?None * Allergies:?N.K.D.A.yes[Aller gies Verified] Objective: * Vitals:?Ht: 67, Wt: 164, BMI [...] mg/dL ???Lab:Lipid Panel (Order Da 05/15/2024) (Collection & Time - 05/15/2024 08:00 AM) ? Value Reference Range ?Triglycerides 55 <150 - mg/dL ?Cholesterol 173 <200 - m g/dL ?LDL Cholesterol Calculated 90 <100 - mg/dL ?HDL Cholesterol 72 >40 - mg/dL ???Lab:UA ClnCatch+Micro w/r flx Cult (Order 05/15/2024) (Collection & Time - 05/15/2024 08:00 AM) ? Value Reference Range ?Color Urine Yellow - ?Appearance Urine Clear - ?PH 6.5 5.0-9.0 - ?Glucose Urine UA Negative Neg ative - mg/dL ?Urine Blood Negative Negative - ?Specific Jber - Urine 1.015 1.005-1.025 - ?Urine Protein [...] negative??7.?Depression screening? Notes: negative screen?? * Procedure Codes:?00772 VENIP UNCT, ROUTINE*97668 TEST FOR BLOOD, FECES * Follow Up:?1 Year * * Sign off status: Completed true * Provider:?Geoffrey Murillo MD Date:?0 05/22/2024 Generated for Naseem jalloh/Nestor/eTransmitting on:?06/22/2024 01:09 PM EDT History and Physical Notes * HPI (History [...]
--- OUTSIDE RECORDS SUMMARY | 2024-06-22 13:09 | XMS_ITS ---
Author Organization Geoffrey Murillo MD Address [address] [place], [place] [phone] Care Team Providers Care Assistant Boiler Operator Name Role Phone Geoffrey Murillo Primary Care Provider Results Component Value Reference Range Notes Complete Blood Count Auto Di ff (Not yet reviewed by provider) Interpretation: Performing Lab:[facility], [address] [place] [phone] Notes/Report: White Blood Count 5.5 4.8-10.8 X10*3/uL Red Blood Count 4.85 4.60-5.80 X10*6/uL Hemoglobin 14.4 14.0-18.0 g/dl Hematocrit 44.5 42.0-52.0 % Mean Corpuscular Volume 91.8 80.0-98.0 fL Mean Corpuscular Hemoglobin 29.7 27.0-33.0 pg Mean Corpuscular HGB Conc 32.4 31.0-36.0 g/dl Red Cell Distribution Width 12.4 11.0-16.0 % Platelet Count 165 160-400 X10*3/uL Mean Platelet Volume 11.8 9.4-12.4 fL Neutrophils Percent Auto 47.2 45-73 % Imm Gran Pct Auto 0.4 0.0-0.4 % Lymphocytes Percent Auto 32.4 20-40 % Monocytes Percent Auto 12.5 2-11 % Eosinophils Percent Auto 6.4 0-4 % Basophils Percent Auto 1.1 0-2 % NRBC Pct Auto 0.0 0.0-0.2 /100WBC Neutrophils Absolute Auto 2.6 2.0-8.3 x10*3/u L Imm Gran Abs Auto 0.02 0.00-0.03 X10*3/uL Lymphocytes Absolute Auto 1.8 1.2-4.9 X10*3/u L Monocytes Absolute Auto 0.7 0.1-1.2 X10*3/uL Eosinophils Absolute Auto 0.4 0.0-0.4 X10*3/u L Basophils Absolute Auto 0.1 0.0-0.2 X10*3/uL NRBC Abs Auto 0.000 0.0-0.012 X10*3/uL REASON FOR VISIT Repeat 1 month CBC Encounters Encounter Location Date Provider Diagnosis Geoffrey Murillo MD [address] [place] [phone] 06/22/2024 Geoffrey Murillo Thrombocytopenia D69 .6 Assessments Encounter Date Diagnosis (ICD Code) Assessment Notes Treatment Notes Treatment Clinical Notes Section Notes 06/22/2024 Thrombocytopenia (ICD-10 - D69.6) Plan Of Treatment Pending Test Test Name Order Date Complete Blood Count Auto Diff Next Appt Details Provider Name:Geoffrey drummond, 05/21/2025 07:15:00 AM, [address] [place] [address], [phone], Provider Name:Geoffrey drummond, 05/28/2025 01:00:00 PM, [address] [place] [address], [phone], Progress Notes * Gilbert SHAW WDOB: (69 yo M)Acc No.[id number]:06/22/2024 Progress Note Patient:?Gilbert SHAW W Provider:?Geoffrey Murillo MD :1955???Age:69 Y???Sex:Male Stanford e:06/22/2024 Address:[address], [id number] Subjective: * Chief Complaints: * ???1. Repeat 1 month CBC. * Medical History:? Objective: * Vitals:? Assessment: * Assessment: 1.?Thrombocytopenia - D69.6 (Primary)??? Plan: * Treatment: * Procedure Codes:?84963 VENIP UNCT, ROUTINE* * * The named appointment provid er may or may not be the originator of this progress note, and it is not deemed complete until electronically signed by the appointment provider. Sign off status: Pending * Provider:?Geoffrey Murillo MD Date:?0 06/22/2024 Generated for Naseem jalloh/Nestor/Wyatt on:?06/22/2024 01:09 PM EDT
--- OUTSIDE RECORDS SUMMARY | 2024-06-22 13:10 | XMS_ITS | Patient Health Record ---
Author Organization Geoffrey Murillo MD Address [address] [place], [place] [phone] Care Team Providers Care T Rail Turner Name Role Phone Geoffrey Murillo Primary Care Provider Allergies No Known Allergies Results Component Value Reference Range Notes Complete Blood Count Auto Di ff Reviewed date:05/24/2024 02:51:49 PM Interpretation:05-22-2024 Performing Lab:[facility], [address] [place] [phone] Notes/Report: White Blood Count 5.4 4.8-10.8 X10*3/uL [...] Panel Reviewed date:05/15/2024 12:42:12 PM Interpretation: Performing Lab:[address] [phone] Notes/Report: Triglycerides 55 <150 mg/dL Desirable Triglyceride: [...] (Free>4and<10) Reviewed date:05/15/2024 12:43:54 PM Interpretation: Performing Lab:[address] [phone] Notes/Report: PSA,Total (Free>4and<10) 0.74 0.00-4.00 ng/mL A [...] Random Reviewed date:05/15/2024 12:43:47 PM Interpretation: Performing Lab:[address] [phone] Notes/Report: Creatinine Urine 104.85 Microalbumin Urine < 5.0 Microalbum/Creatinine Ratio Ur TNP <30 ug/mg cr Unable to calculate albumin/creatinine ratio due to low microalbumin or creatinine result. Hemoglobin A1c Reviewed date:05/15/2024 12:42:47 PM Interpretation: Performing Lab:[address] [phone] Notes/Report: Hemoglobin A1c % 6.0 <6.0 % [...] average glucose, using the formula of the Y3H-Gainsgj Average Glucose study (ADAG), Diabetes Care, Vol.31,#8, Oct. 2007 UA ClnCatch+Micro w/rflx Cul t Reviewed date:05/15/2024 04:28:44 PM Interpretation: Performing Lab:[address] [phone] Notes/Report: Urine, Clean Catch Color Urine Yellow Appearance Urine Clear PH 6.5 5.0-9.0 Glucose Urine UA Negative Negative mg/dL Urine Blood Negative Negative Specific [place] - Urine 1.015 1.005-1.025 Urine Protein Negative Neg-Trace mg/dL Urine Ketones Negative Negative mg/dL Nitrite Urine Negative Negative Leukocyte Esterase Urine Negative Negative RBC Urine 0-2 0-2 /HPF WBC Urine 0-5 0-5 /HPF Squamous Epithelial Cell Urine 0-2 0-2 /HPF Bacteria Urine None Seen None Seen Hyaline Casts Urine 0-2 0-2 /LPF Occult Blood, Stool, Guaiac Reviewed date:05/22/2024 01:43:05 PM Interpretation:Negative Performing Lab: Notes/Report: Negative Occult Blood, Stool, Guaiac Neg Complete Blood Count Auto Di ff Reviewed date:05/25/2024 11:44:50 AM Interpretation: Performing Lab:[facility], [address] [place] [phone] Notes/Report: White Blood Count 7.3 4.8-10.8 X10*3/uL [...] X10*3/uL NRBC Abs Auto 0.000 0.0-0.012 X10*3/uL Complete Blood Count Auto Di ff (Not yet reviewed by provider) Interpretation: Performing Lab:[facility], [address] [place] [phone] Notes/Report: White Blood Count 5.5 4.8-10.8 X10*3/uL [...] X10*3/uL NRBC Abs Auto 0.000 0.0-0.012 X10*3/uL Reason For Referral No Information Immunizations Vaccine [...] Status W/U Status Risk Notes Problem Thrombocytopenia (973617698) Thrombocytopenia (D69.6) Active confirmed Problem 491639146 Labile hypertension (I10) Active confirmed Problem 93609630 Ulcerative colit is without complications, unspecified ulcerative colitis (K51.90) Active confirmed Problem 361671340 Prediabetes (R73.03) Active confirmed Vital Signs Blood pressure diastolic 86 mm Hg 05/22/2024 Height 67 in 05/22/2024 Blood pressure systolic 152 mm Hg 05/22/2024 Weight 164 lbs 05/22/2024 BMI 25.68 kg/m2 05/22/2024 Encounters Encounter Location Date Provider Diagnosis Geoffrey Murillo MD [address] [place] [phone] 05/15/2024 Geoffrey Murillo Blood tests for rout ine general physical examination Z00.00 ; Labile hypertension I10 ; Thrombocytopenia D69.6 and Prediabetes R73.03 Geoffrey Murillo MD [address] [place] [phone] 06/22/2024 Geoffrey Murillo Thrombocytopenia D69 .6 Geoffrey Murillo MD [address] [place] [address] Drive [address] [place] [phone] 05/22/2024 Geoffrey Murillo Thrombocytopenia D69 .6 ; Annual physical exam Z00.00 ; Ulcerative colitis without complications, unspecified ulcerative colitis K51.90 ; Prediabetes R73.03 ; Labile hypertension I10 ; Colon cancer screening Z12.11 and Depression screening Z13.31 Assessments Encounter Date Diagnosis (ICD Code) Assessment Notes Treatment Notes Treatment Clinical Notes Section Notes 05/15/2024 Blood tests for routine general physical examination (ICD-10 - Z00.00) 06/22/2024 Thrombocytopenia (ICD-10 - D69.6) 05/22/2024 Thrombocytopenia (ICD-10 - D69.6) will repeat [...] CONTRAST 01/29/2017 Complete Blood Count Auto Diff Next Appt Details Provider Name:Geoffrey drummond, 05/21/2025 07:15:00 AM, [address], [address], [place], [place], [phone], Provider Name:Geoffrey drummond, 05/28/2025 01:00:00 PM, [address] [facility], [address], [place], [place], [phone], Insurance Providers Payer Name Payer Address Payer Phone Subscriber Number Group Number Insured Name Patient Relationship to Insured Coverage Start Date Coverage End Date [facility] [address] [place], [place] [phone] [id number] Colin Gilbert Self - patient is the insured Medical (General) History Medical History History ICD Code COLONOSCOPY 2012 repeat in 5 years NEG dysplasia; colonoscopy done 02/24/15; Colonoscopy done 04/29/[address] Blunt
--- OUTSIDE RECORDS SUMMARY | 2024-06-22 13:10 | XMS_ITS ---
Author Organization Geoffrey Murillo MD Address [address] [place], [place] [phone] Care Team Providers Care Biomass Power Plant Manager Name Role Phone Geoffrey Murillo Primary Care Provider [phone] Results Component Value Reference Range Notes Complete Blood Count Auto Di ff Reviewed date:05/24/2024 02:51:49 PM Interpretation:05-22-2024 Performing Lab:[facility], [address] [place] [phone] Notes/Report: White Blood Count 5.4 4.8-10.8 X10*3/uL [...] Panel Reviewed date:05/15/2024 12:42:12 PM Interpretation: Performing Lab:[address] [phone] Notes/Report: Triglycerides 55 <150 mg/dL Desirable Triglyceride: [...] (Free>4and<10) Reviewed date:05/15/2024 12:43:54 PM Interpretation: Performing Lab:[address] [phone] Notes/Report: PSA,Total (Free>4and<10) 0.74 0.00-4.00 ng/mL A [...] Random Reviewed date:05/15/2024 12:43:47 PM Interpretation: Performing Lab:[address] [phone] Notes/Report: Creatinine Urine 104.85 Microalbumin Urine < 5.0 Microalbum/Creatinine Ratio Ur TNP <30 ug/mg cr Unable to calculate albumin/creatinine ratio due to low microalbumin or creatinine result. Hemoglobin A1c Reviewed date:05/15/2024 12:42:47 PM Interpretation: Performing Lab:[address] [phone] Notes/Report: Hemoglobin A1c % 6.0 <6.0 % [...] average glucose, using the formula of the Q2G-Zpfhmbr Average Glucose study (ADAG), Diabetes Care, Vol.31,#8, Oct. 2007 UA ClnCatch+Micro w/rflx Cul t Reviewed date:05/15/2024 04:28:44 PM Interpretation: Performing Lab:[address] [phone] Notes/Report: Urine, Clean Catch Color Urine Yellow Appearance Urine Clear PH 6.5 5.0-9.0 Glucose Urine UA Negative Negative mg/dL Urine Blood Negative Negative Specific [place] - Urine 1.015 1.005-1.025 Urine Protein Negative [...] Location Date Provider Diagnosis Geoffrey Murillo MD [address] [place] [address] [place] [phone] 05/15/2024 Geoffrey Murillo Blood tests for rout [...] Prediabetes (ICD-10 - R73.03) Plan Of Treatment Next Appt Details Provider Name:Geoffrey drummond, 05/21/2025 07:15:00 AM, [address] [place] [address], [place] [address], [place], [place], [phone], Provider Name:Geoffrey drummond, 05/28/2025 01:00:00 PM, [address] [place] [address], [address], [phone], Progress Notes * COLINGilbert WDOB: (69 yo M)Acc No.[id number]:05/15/2024 Progress Note Patient:?Gilbert SHAW W Provider:?Geoffrey Murillo MD :1955???Age:69 Y???Sex:Male Stanford e:05/15/2024 Address:[address] [place], [place] [phone] Subjective: * Chief Complaints: * ???1. Fasting [...] Date & Time - 05/15/2024 08:00 AM) 3.?Thrombocytopenia?LAB: Complete Blood Count Auto Diff (Collection Date & Time 05/15/2024 08:00 AM) ?LAB: Lipid Panel (Collection & Time 05/15/2024 08:00 AM) ?LAB: PSA,Total [...] Time - 05/15/2024 08:00 AM) * Procedure Codes:?82913 VENIP UNCT, ROUTINE* * * The named appointment provid er may or may not be the originator of this progress note, and it is not deemed complete until electronically signed by the appointment provider. Sign off status: Pending * Provider:?Geoffrey Murillo MD Date:?0 05/15/2024 Generated for Naseem jalloh/Nestor/Tonyitting on:?06/22/2024 01:09 PM EDT
--- OUTSIDE RECORDS SUMMARY | 2024-06-22 13:10 | XMS_ITS | Patient Health Record ---
Author Organization [facility] Address [address] [place] [phone] Care Team Providers Care Lace Sewer Name Role Phone Chidi SANFORD, Geoffrey Primary Care Provider Dennis Brito [phone] Allergies Allergen (clinical drug ingredient) Drug/Non Drug [...] Problem Screening for malignant neoplasm of colon (163247081) Encounter for screening for malignant neoplasm of colon (Z12.11) Active confirmed Problem Ulcerative colitis (17419483) Ulcerative colitis (K51.90) Active confirmed Plan Of Treatment Pending Test Test Name Order Date Pathology 04/29/2020 Future Test Test Name Order Date COLONOSCOPY 11/18/2014 COLONOSCOPY 04/05/2020 Insurance Providers Payer Name Payer Address Payer Phone Subscriber Number Group Number Insured Name Patient Relationship to Insured Coverage Start Date Coverage End Date [facility] [address] [place], [place] [id number] KAL MEYER Self - patient is the [...] his sulfasalazine since at least 2013 Denies RI,DM,CVA,Lung disease,renal dise ase Surgical History Surgery Date(Month/Year)
== END 2024-06-22 10:59 | disposition home or self-care (01) ==
LOC: HO.LNP 10:58
PROVIDERS: Visit Provider Internal Medicine
DX: D69.6 Thrombocytopenia, unspecified (principal)
CPT/HCPCS: 85025